=== PATIENT | female | born 1925 | race Caucasian/White ===

== ENCOUNTER 2016-11-07 00:06 | Inpatient (IN) ==
[2016-11-07] MEDS ORDERED: 0.9 % Sodium Chloride 1,000 ML IVC ONE (00:21)
[2016-11-07] MEDS: Ipratropium/Albuterol Neb 3 ML IH ONE ×2 (00:35→00:37)
--- NOTE | 2016-11-07 00:35 | Emergency Department Note ---
Disposition Clinical Impression: Congestive heart failure, Pneumonia, CKD (chronic kidney disease), Elevated troponin Disposition: Admitted As Inpatient Condition: Fair Time of Disposition: 03:40 SOB HPI - General Chief Complaint: ED Shortness of Breath/Dyspnea Stated Complaint: Hypoxia Time Seen by Provider: 11/07/16 00:21 Source: EMS Mode of arrival: EMS Limitations: altered mental status, age Nursing Notes Reviewed: Yes Vital Signs Reviewed: Yes - History of Present Illness 89-year-old female patient presents to the emergency department via EMS with reported hypoxia. Patient presents from a retirement where she has been a long-term resident. Patient has an extensive medical history. She denied any complaints upon arrival. long term report states that patient was hypoxic around 87% while on 2 L via nasal cannula. Patient has baseline altered mental status which is unchanged per nursing report. She is alert and oriented on exam. She denies any recent fever, chills, nausea, vomiting or abdominal pain. She denies any chest pain or shortness of breath. She does have a significant history of upper respiratory illnesses to include pneumonia and COPD exacerbations. Onset (ago): hour(s) Severity: moderate Consistency/Duration: constant, gradually worsening Improves with: oxygen Worsens with: nothing Known history of: COPD, recurrent pneumonia Associated symptoms: Reports: denies other symptoms Treatment prior to arrival: oxygen Cough present: No Sputum production: No Sputum Amount: None - Related Data Home oxygen amount: 2 liters Home Medications Medication Instructions Recorded Confirmed Cilostazol 50 mg PO BID 02/20/15 07/08/16 Citalopram Hydrobromide [Celexa] 20 mg PO DAILY 02/20/15 07/08/16 Ferrous Sulfate 325 mg PO BID 02/20/15 07/08/16 Folic Acid 1 mg PO DAILY 02/20/15 07/08/16 Hydroxychloroquine Sulfate 200 mg PO BID 02/20/15 07/08/16 [Plaquenil] Loperamide HCl [Diamode] 2 mg PO Q6H PRN 02/20/15 07/08/16 Simvastatin [Zocor] 10 mg PO DAILY 02/20/15 07/08/16 Calcium Carbonate [Calcium] 500 mg PO QID 07/26/15 07/08/16 Ergocalciferol (VITAMIN D2) 50,000 unit PO FR 07/26/15 07/08/16 [Vitamin D2 (50,000 UNIT)] Omeprazole [PriLOSEC] 40 mg PO DAILY 07/26/15 07/08/16 Potassium Chloride [K-Tab ER] 20 meq PO DAILY 07/26/15 07/08/16 Alendronate Sodium [Fosamax] 70 mg PO TU 04/04/16 07/08/16 Aspirin 81 mg PO DAILY 04/04/16 07/08/16 Docusate Sodium [Colace] 100 mg PO DAILY PRN 04/04/16 07/08/16 Ondansetron HCl [Zofran] 4 mg PO Q6H PRN 04/04/16 07/08/16 Propylene Glycol/Peg 400 [Systane 1 drop RIGHT EYE QID PRN 04/04/16 07/08/16 Gel Eye Drops] Sodium Chloride [Rhinaris] 1 spray NS TID PRN 04/04/16 07/08/16 Vitamin A 10,000 unit PO AD 04/04/16 07/08/16 Protein Supplement [Promod] 30 ml PO BID 06/15/16 07/08/16 Ranitidine HCl [Acid Universal Banker] 150 mg PO BID 06/15/16 07/08/16 Alprazolam [Xanax 0.25 MG Tablet] 0.25 mg PO BID PRN 07/08/16 07/08/16 Chlorpheniramine/Dextromethorp 2 cap PO Q4H PRN 07/08/16 07/08/16 [Coricidin Hbp Cough & Cold Tab] Dextran 70/Hypromellose 1 drop OP BID PRN 07/08/16 07/08/16 [Artificial Tears] Diclofenac Sodium [Voltaren] 1 appl TP QID 07/08/16 07/08/16 DiphenhydraMINE [Benadryl] 25 mg PO Q6H PRN 07/08/16 07/08/16 Gabapentin [Neurontin] 300 mg PO BID 07/08/16 07/08/16 Oxycodone HCl 10 mg PO Q4H 07/08/16 07/08/16 Previous Rx's Medication Instructions Recorded Furosemide [Lasix] 20 mg PO DAILY #4 tablet 03/18/15 OxyCODONE Immed Rel [Roxicodone 5 5 mg PO BID PRN #10 tablet 06/18/16 MG] Amlodipine [Norvasc] 5 mg PO DAILY #30 tablet 07/11/16 Allergies Allergy/AdvReac Type Severity Reaction Status Date / Time levofloxacin Allergy Mild unknown Verified 07/08/16 14:52 cephalexin [From Keflex] Allergy Unknown unknown Verified 07/08/16 14:52 clindamycin Allergy Unknown See Verified 07/08/16 14:52 Comments Erythromycin Base Allergy Unknown unknown Verified 07/08/16 14:52 hydrochlorothiazide Allergy Unknown unknown Verified 07/08/16 14:52 [From Aldoril] ibuprofen [From Motrin] Allergy Unknown See Verified 07/08/16 14:52 Comments ketorolac [From Toradol] Allergy Unknown See Verified 07/08/16 14:52 Comments methyldopa Allergy Unknown unknown Verified 07/08/16 14:52 sulfamethoxazole Allergy See Verified 07/08/16 14:52 [From Bactrim] Comments trimethoprim [From Bactrim] Allergy See Verified 07/08/16 14:52 Comments vancomycin AdvReac Unknown Red Man Verified 07/08/16 14:52 Syndrome All systems ED: reviewed and negative except as stated. Constitutional: Denies: fever, chills Cardiovascular: Denies: chest pain Respiratory: Reports: dyspnea, wheezes. Denies: cough Gastrointestinal: Denies: abdominal pain, nausea, vomiting Musculoskeletal: Denies: back pain, neck pain, joint swelling Integumentary: Denies: rash, abrasion, lesions Neurological: Denies: headache Psychiatric: Denies: anxiety, depression, suicidal thoughts, homicidal thoughts Past Medical History - Past Medical History Attestation: Yes The following information was validated with the patient. Source: patient, nursing notes reviewed Medical history: Reports: arthritis, cancer, CHF, GERD, hyperlipidemia, hypertension, liver disease, malignancy, osteoporosis, renal disease Surgical history: Reports: appendectomy, cataract, cholecystectomy, knee replacement Psychiatric history: Reports: no psych history EXTRACTIVE METALLURGIST history: Reports: no EXTRACTIVE METALLURGIST history - Social History Smoking Status: Never smoker Smokeless Tobacco Status: No Alcohol use: Reports: none Drug use: Reports: none Physical Exam - General Limitations: altered mental status General appearance: other (Patient appears somnolent, likely secondary to her "nighttime meds." Easily arousable and alert and oriented upon questioning.) - Head Head exam: atraumatic, normocephalic, normal inspection - Eye Eye exam: Present: normal appearance, PERRL - Neck Neck exam: Present: normal inspection, full ROM, trachea midline - Chest Chest inspection: Present: normal inspection, symmetric chest wall rise - Respiratory Respiratory exam: Present: wheezes (Occasional expiratory wheeze. Mild rhonchi noted throughout all lung severino.) - Cardiovascular Cardiovascular exam: Present: regular rate, normal rhythm, normal heart sounds - Abdominal Exam Abdominal exam: Present: soft, Non-Tender, normal bowel sounds - Extremities Exam Extremities exam: Present: normal inspection, full ROM. Absent: tenderness, pedal edema, calf tenderness - Expanded Lower Extremity Exam Gait: not tested/not observed - Back Exam Back exam: Present: normal inspection, full ROM. Absent: tenderness - Neurological Exam Neurological exam: Present: alert, oriented X3 - Psychiatric Psychiatric exam: Present: normal affect, normal mood - Skin Skin exam: Present: warm, dry, intact, normal color Course - Consultations Consultation #1: I discussed the case with the hospitalist, Dr. Finn, he accepts the patient for admission. Time: 03:39 Vital Signs Temperature 98.3 F 11/07/16 00:09 Pulse Rate 107 11/07/16 00:09 Respiratory Rate 16 11/07/16 00:09 Blood Pressure 132/87 11/07/16 00:09 O2 Sat by Pulse Oximetry 93 11/07/16 00:09 Temperature 98.3 F 11/07/16 00:09 Pulse Rate 101 11/07/16 03:57 Respiratory Rate 19 11/07/16 03:57 Blood Pressure 108/69 11/07/16 03:57 O2 Sat by Pulse Oximetry 97 11/07/16 03:57 Oxygen Delivery Oxygen Delivery Nasal Cannula Shortness of Breath/Dyspnea - Lab Data Result diagrams: 11/07/16 02:05 11/07/16 02:05 Lab Results 11/07/16 11/07/16 11/07/16 Range/Units 02:05 02:05 02:05 WBC 8.8 (4.3-11.1) K/mcL RBC 3.96 (3.82-4.97) M/mcL Hgb 11.3 L (11.5-15.4) g/dL Hct 34.8 L (35.3-44.9) % MCV 87.9 (83.0-100.0) fL MCH 28.5 (28.0-33.3) pg MCHC 32.5 (31.6-35.5) g/dL RDW 14.6 H (11.5-14.5) % Plt Count 154 (140-400) K/mcL MPV 10.4 (9.4-12.4) fL Immature Gran % 0.8 (0-4) % Seg Neutrophils % 96.3 % Lymphocytes % 1.8 % Monocytes % 1.0 % Eosinophils % 0.0 % Basophils % 0.1 % Neutrophils # 8.5 (1.6-8.9) K/mcL Lymphocytes # 0.2 L (0.6-4.6) K/mcL Monocytes # 0.1 (0.0-1.3) K/mcL Eosinophils # 0.0 (0.0-0.6) K/mcL Basophils # 0.0 (0.0-0.2) K/mcL Toxic Granulation Present A (Not Present) Toxic Vacuolation Present A (Not Present) Platelet Estimate Normal (Normal) Large Platelets Present A (Not Present) PT (9.4-12.1) Seconds INR APTT (26.0-36.0) Seconds Sodium 124 L (136-145) mEq/L Potassium 4.7 H (3.5-4.5) mEq/L Chloride 87 L (98-109) mEq/L Carbon Dioxide 26 (19-29) mEq/L BUN 41 H (7-20) mg/dL Creatinine 2.56 H (0.57-1.11) mg/dL Est GFR ( Amer) 21 L (> 60) Est GFR (Non-Af Amer) 18 L (> 60) BUN/Creatinine Ratio 16 (6-26) Glucose 83 (70-99) mg/dL Calculated Osmolality 267 L (280-300) Calcium 9.7 (8.6-10.8) mg/dL Troponin I 0.05 H* (0-0.03) ng/mL B-Natriuretic Peptide (0-100) pg/mL 11/07/16 11/07/16 Range/Units 02:05 02:05 WBC (4.3-11.1) K/mcL RBC (3.82-4.97) M/mcL Hgb (11.5-15.4) g/dL Hct (35.3-44.9) % MCV (83.0-100.0) fL MCH (28.0-33.3) pg MCHC (31.6-35.5) g/dL RDW (11.5-14.5) % Plt Count (140-400) K/mcL MPV (9.4-12.4) fL Immature Gran % (0-4) % Seg Neutrophils % % Lymphocytes % % Monocytes % % Eosinophils % % Basophils % % Neutrophils # (1.6-8.9) K/mcL Lymphocytes # (0.6-4.6) K/mcL Monocytes # (0.0-1.3) K/mcL Eosinophils # (0.0-0.6) K/mcL Basophils # (0.0-0.2) K/mcL Toxic Granulation (Not Present) Toxic Vacuolation (Not Present) Platelet Estimate (Normal) Large Platelets (Not Present) PT 12.8 H (9.4-12.1) Seconds INR 1.2 APTT 32.1 (26.0-36.0) Seconds Sodium (136-145) mEq/L Potassium (3.5-4.5) mEq/L Chloride (98-109) mEq/L Carbon Dioxide (19-29) mEq/L BUN (7-20) mg/dL Creatinine (0.57-1.11) mg/dL Est GFR ( Amer) (> 60) Est GFR (Non-Af Amer) (> 60) BUN/Creatinine Ratio (6-26) Glucose (70-99) mg/dL Calculated Osmolality (280-300) Calcium (8.6-10.8) mg/dL Troponin I (0-0.03) ng/mL B-Natriuretic Peptide 770 H (0-100) pg/mL Attestation Statement - Attestation Attestation: I, Keagan Juárez MD, personally evaluated this patient and discussed their management with the midlevel provicer, PAC/INFORMATICA MDM ARCHITECT. I reviewed the midlevel provider 's note and agree with the documented findings, medical decision making, and plan of care. 89-year-old female from a local retirement was referred to the emergency department for evaluation of hypoxia. Patient admits to some shortness of breath. She normally wears oxygen at night. There has been some cough with intermittent sputum production. On examination patient is a thin elderly female in no acute distress. She is alert and in no distress. Breath sounds are equal bilaterally with no definite rales or wheezes noted. Heart regular rate and rhythm. Abdomen is soft with normal bowel sounds. Chest x-ray shows low lung volumes with elevated hemidiaphragms. Perihilar atelectasis. Right upper lobe air space disease. Consider pulmonary edema, cannot exclude pneumonia. EKG shows a sinus tachycardia with a heart rate of 105, no acute ischemic changes. Labs reviewed. WBC normal with 96% segs. Hyponatremia with sodium of 124. Troponin 0.05. BNP 770. Chronic renal insufficiency. The hospitalist, Dr. Finn, was consulted and accepted admission of the patient.
[2016-11-07 02:24] LABS: Basophils % 0.1 %; Hematocrit 34.8 % (35.3-44.9); Hemoglobin 11.3 g/dL (11.5-15.4); Immature Granulocytes % 0.8 % (0-4); Lymphocytes # 0.2 K/mcL (0.6-4.6); Lymphocytes % 1.8 %; Mean Corpuscular HGB Conc 32.5 g/dL (31.6-35.5); Mean Corpuscular Hemoglobin 28.5 pg (28.0-33.3); Mean Corpuscular Volume 87.9 fL (83.0-100.0); Mean Platelet Volume 10.4 fL (9.4-12.4); Monocytes # 0.1 K/mcL (0.0-1.3); Neutrophils # 8.5 K/mcL (1.6-8.9); Platelet Count 154 K/mcL (140-400); Red Blood Count 3.96 M/mcL (3.82-4.97); Red Cell Distribution Width 14.6 % (11.5-14.5); Segmented Neutrophils % 96.3 %
[2016-11-07 02:33] LABS: INR 1.2; Prothrombin Time 12.8 Seconds (9.4-12.1)
[2016-11-07 02:36] LABS: Activated Partial Thrombo Time 32.1 Seconds (26.0-36.0)
[2016-11-07 02:37] LABS: Calcium 9.7 mg/dL (8.6-10.8); Potassium 4.7 mEq/L (3.5-4.5)
[2016-11-07 02:44] LABS: Large Platelets Present (Not Present); Platelet Estimate Normal (Normal); Toxic Granulation Present (Not Present); Toxic Vacuolation Present (Not Present)
[2016-11-07] MEDS ORDERED: Naloxone 0.4 MG/ML INJ IVP PRN (03:44)
[2016-11-07] MEDS ORDERED: Ringers Solution, Lactated 1,000 ML IVC SCH (03:45)
[2016-11-07] MEDS ORDERED: ALPRAZolam 0.5 MG TABLET PO PRN (03:48)
[2016-11-07] MEDS ORDERED: Haloperidol Lactate 5 MG/ML VIAL IVP PRN (03:50)
[2016-11-07] MEDS ORDERED: Azithromycin 250 MG TABLET PO ONE (04:06)
--- NOTE | 2016-11-07 04:32 | Internal Med History&Physical ---
<Riky Sotelo - Last Filed: 11/07/16 09:37> Date of Encounter: 11/07/16 Time of Encounter: 04:27 Assessment and Plan (1) Acute and chronic respiratory failure Current visit: Yes Status: Acute -CXR shows abnormalities consistant for pneumonia -Large allergy list that patient is unsure is classified as a true allergy -Will start abx. Consider levaquin so patient can be transitioned to oral. Monitor for anaphylaxis. Qualifiers: Respiratory failure complication: hypoxia Qualified Code(s): J96.21 - Acute and chronic respiratory failure with hypoxia (2) Pneumonia Current visit: No Status: Acute -see above -Extensive PMH. intermediate patient. Aggressive therapy. Qualifiers: Pneumonia type: due to unspecified organism Laterality: unspecified laterality Lung location: unspecified part of lung Qualified Code(s): J18.9 - Pneumonia, unspecified organism (3) Hyperkalemia Current visit: No Status: Acute -Continue to monitor. Hemolysis vs actual hyperkalemia? -Redraw K. -Consider kayexelate. (4) CKD (chronic kidney disease) stage 3, GFR 30-59 ml/min Current visit: No Status: Acute (5) Hyponatremia Current visit: No Status: Acute -Patient deydrated on physical exam-dry mucus membranes -CKD. Consider adding fluids. Patient not having AMS at this time-no need for aggressive replacement with hypertonic saline. (6) Hypertension Current visit: Yes Status: Acute -Resume home medication. Dehydrated. Consider replacing fluids. Qualifiers: Hypertension type: unspecified secondary hypertension Qualified Code(s): I15.9 - Secondary hypertension, unspecified; I15 - Secondary hypertension Internal Medicine - H&P: HPI Chief complaint: Sent from long-term for low pulse oxygen reading Admitted From: Emergency Dept Plans for Post Hospital Care: Transfer [facility] History of present illness: Ms. Cuenca is a 89 year old female, care home long-term resident with an extensive PMH, admitted for hypoxia. intermediate reports O2 stat at 87% on 2L NC, EMS called and patient presented to [place] ED. Patient is resting comfortably in bed. Per long-term, she has baseline AMS. Currently, the patient is A&O x 3. States she feels normal and at baseline. Denies any F/C/SHIPLEY/Blurry vision/confusion/acute weakness/FNLD/CP/palpitations/ SOB/abdominal pain/hematuria/urinary complaints/leg pain or swelling. She does have significant history of upper respiratory tract infections, COPD exacerbations, pneumonia. Patient unsure of when her last time taking abx and does not recall an allergy to levofloxacin. Past Med Surg Social Fam HX - Past Medical History Medical history: arthritis, cancer, CHF, GERD, hyperlipidemia, hypertension, liver disease, malignancy, osteoporosis, renal disease Psychiatric history: no psych history - Past Surgical History Surgical History: appendectomy, cataract, cholecystectomy, knee replacement - Social History Smoking Status: Never smoker Smokeless Tobacco Status: No Alcohol use: none Drug use: none - Family History Sister Adopted: No Living Status: Still Living Hx Family Cardiac Disorders: No Hx Family Respiratory Disorders: No Hx Family Cancer: No Hx Family GI Disorders: No Hx Family Endocrine Disorder: No Hx Family Neuromuscular Disorders: No Hx Family Neurologic Disorders: No Hx Family HEENT Disorders: No Hx Family Autoimmune Disorders: No Brother Family Member Ethnicity: Non- Living Status: Still Living Hx Family Cardiac Disorders: Yes (BYPASS) Hx Family Respiratory Disorders: Yes Hx Family Cancer: Yes Hx Family GI Disorders: No Hx Family Endocrine Disorder: Yes Hx Family Neuromuscular Disorders: No Hx Family Neurologic Disorders: No Hx Family HEENT Disorders: No Hx Family Autoimmune Disorders: No Internal Medicine - H&P: Meds Cilostazol 50 mg PO BID 02/20/15 [History] Citalopram Hydrobromide [Celexa] 20 mg PO DAILY 02/20/15 [History] Ferrous Sulfate 325 mg PO BID 02/20/15 [History] Folic Acid 1 mg PO DAILY 02/20/15 [History] Hydroxychloroquine Sulfate [Plaquenil] 200 mg PO BID 02/20/15 [History] Loperamide HCl [Diamode] 2 mg PO Q6H PRN 02/20/15 [History] Simvastatin [Zocor] 10 mg PO DAILY 02/20/15 [History] Furosemide [Lasix] 20 mg PO DAILY #4 tablet 03/18/15 [Rx] Calcium Carbonate [Calcium] 500 mg PO QID 07/26/15 [History] Ergocalciferol (VITAMIN D2) [Vitamin D2 (50,000 UNIT)] 50,000 unit PO FR [History] Potassium Chloride [K-Tab ER] 10 meq PO Q72H 07/26/15 [History] Alendronate Sodium [Fosamax] 70 mg PO TU 04/04/16 [History] Aspirin 81 mg PO DAILY 04/04/16 [History] Docusate Sodium [Colace] 100 mg PO DAILY PRN 04/04/16 [History] Ondansetron HCl [Zofran] 4 mg PO Q6H PRN 04/04/16 [History] Sodium Chloride [Rhinaris] 1 spray NS TID PRN 04/04/16 [History] Vitamin A 10,000 unit PO AD 04/04/16 [History] Ranitidine HCl [Acid Set Up Inspector] 150 mg PO BID 06/15/16 [History] OxyCODONE Immed Rel [Roxicodone 5 MG] 5 mg PO BID PRN #10 tablet 06/18/16 [Rx] Alprazolam [Xanax 0.25 MG Tablet] 0.25 mg PO BID PRN 07/08/16 [History] Chlorpheniramine/Dextromethorp [Coricidin Hbp Cough & Cold Tab] 2 cap PO Q4H PRN 07/08/16 [History] Dextran 70/Hypromellose [Artificial Tears] 1 drop OP BID PRN 07/08/16 [History] Diclofenac Sodium [Voltaren] 1 appl TP QID 07/08/16 [History] DiphenhydraMINE [Benadryl] 25 mg PO Q6H PRN 07/08/16 [History] Gabapentin [Neurontin] 300 mg PO BID 07/08/16 [History] Oxycodone HCl 10 mg PO Q4H 07/08/16 [History] Bisacodyl [Dulcolax] 10 mg RC DAILY PRN 11/07/16 [History] Guaifenesin [Mucinex] 600 mg PO BID 11/07/16 [History] Ipratropium/Albuterol Neb [Duoneb] 3 ml IH Q4HR PRN 11/07/16 [History] MOM Conc [Milk of Magnesia Conc] 30 ml PO DAILY PRN 11/07/16 [History] Terry/Poly/DEX Opth OINT [Maxitrol OPTH Oint] 1 appl OP DAILY PRN 11/07/16 [ History] Polyethylene Glycol 3350 [Purelax] 17 gm PO DAILY 11/07/16 [History] Sodium Chloride 1 gm PO BID 11/07/16 [History] Sulfamethoxazole/Trimeth DS [Bactrim DS] 1 tab PO BID 11/07/16 [History] Allergies levofloxacin Allergy (Mild, Verified 07/08/16 14:52) unknown cephalexin [From Keflex] Allergy (Unknown, Verified 07/08/16 14:52) unknown clindamycin Allergy (Unknown, Verified 07/08/16 14:52) See Comments Erythromycin Base Allergy (Unknown, Verified 07/08/16 14:52) unknown hydrochlorothiazide [From Aldoril] Allergy (Unknown, Verified 07/08/16 14:52) unknown ibuprofen [From Motrin] Allergy (Unknown, Verified 07/08/16 14:52) See Comments unknown ketorolac [From Toradol] Allergy (Unknown, Verified 07/08/16 14:52) See Comments unknown methyldopa Allergy (Unknown, Verified 07/08/16 14:52) unknown sulfamethoxazole [From Bactrim] Allergy (Verified 07/08/16 14:52) See Comments trimethoprim [From Bactrim] Allergy (Verified 07/08/16 14:52) See Comments vancomycin Adverse Reaction (Unknown, Verified 07/08/16 14:52) Red Man Syndrome All Systems PM: A 10-system review of systems was performed and is negative for pertinent findings except as documented above in the HPI. - EENT Eyes: no change in vision, no discharge, no pain, no photophobia - Cardiovascular Cardiovascular ROS IM: no chest pain, no diaphoresis, no dyspnea, no lightheadedness, no palpitations, no syncope - Respiratory Respiratory: no cough, no dyspnea, no wheezing, no excessive phlegm production - Gastrointestinal Gastrointestinal: no abdominal pain, no diarrhea, no hematemesis, no hematochezia, no melena, no nausea, no vomiting - Genitourinary Genitourinary: no change in urinary stream, no dysuria, no flank pain, no hematuria - Neurological Neurological ROS: as per HPI - Constitutional Vitals: Temp Pulse Resp BP Pulse Ox 98.3 F 101 19 108/69 97 11/07/16 00:09 11/07/16 03:57 11/07/16 03:57 11/07/16 03:57 11/07/16 03:57 General appearance: Present: A&O X 3, no acute distress - Head Head exam: Present: atraumatic, normocephalic - Eye Eye exam: Present: PERRL, conjuntiva pink, sclera anicteric Pupils: Present: PERRL - Respiratory Respiratory exam: Present: wheezes - Cardiovascular Cardiovascular exam: Present: RRR, systolic murmur - GI/Abdominal GI/Abdominal exam: Present: normal bowel sounds, soft, no peritoneal signs. Absent: distended, tenderness - Neurological Exam Neurological exam: Present: alert, oriented X3 - Psychiatric Psychiatric exam: Present: normal affect, normal mood - Other Additional findings: -No pitting edema -Patient diffusly red and skin is warm. Was told this is not a change in her initial presntation. Patient states this is normal. No signs of systemic infection. Possible allergy? Patient resting comfortably in bed and not working to breath Internal Med - H&P Results - Labs CBC & Chem 7: 11/07/16 02:05 11/07/16 02:05 <Artie Finn - Last Filed: 11/07/16 19:20> Date of Encounter: 11/07/16 Internal Medicine - H&P: HPI History of present illness: Ms. Cuenca is a 89 year old female All Systems PM: A 10-system review of systems was performed and is negative for pertinent findings except as documented above in the HPI. - Constitutional Vitals: Temp Pulse Resp BP Pulse Ox 98.3 F 83 16 86/54 100 11/07/16 15:24 11/07/16 15:24 11/07/16 15:24 11/07/16 15:24 11/07/16 15:24 Internal Med - H&P Results - Labs CBC & Chem 7: 11/07/16 02:05 11/07/16 11:37 Labs: BMP 11/07/16 11:37 Sodium 126 L Cardiac Enzymes 11/07/16 Range/Units 11:37 Troponin I 0.04 H* (0-0.03) ng/mL - Diagnostic Studies Chest x-ray Status: image reviewed by me - Attending Attestation I personally interviewed and examined this patient and my medical decision- making was reviewed with the Resident Physician. I agree with the documented findings, disposition and treatment plan as described.
[2016-11-07] MEDS ORDERED: 0.9 % Sodium Chloride 500 ML IVC ONE ×2 (06:07→19:21)
[2016-11-07] MEDS ORDERED: *HR* OxyCODONE Immed Rel 5 MG TABLET PO ONE (06:15)
[2016-11-07] MEDS ORDERED: *HR* OxyCODONE Immed Rel 5 MG TABLET PO PRN ×2 (06:19→06:21)
[2016-11-07] MEDS: *HR* Heparin 5,000 UNIT/ML VIAL SQ SCH ×2 (06:45→16:59)
[2016-11-07] MEDS: Folic Acid 1 MG TABLET PO SCH (08:47)
[2016-11-07] MEDS: Aspirin 81 MG TAB.CHEW PO SCH (08:47)
[2016-11-07] MEDS: Vitamin B Complex/Vit C/Vit E 1 EACH TABLET PO SCH (08:47)
[2016-11-07] MEDS: Thiamine (B-1) 100 MG TABLET PO SCH (08:48)
[2016-11-07] MEDS ORDERED: Gabapentin 300 MG CAPSULE PO SCH (09:00)
[2016-11-07] MEDS ORDERED: amLODIPine 5 MG TABLET PO SCH (09:00)
[2016-11-07] MEDS ORDERED: 0.9 % Sodium Chloride 1,000 ML IVC SCH (10:45)
[2016-11-07] MEDS ORDERED: Levofloxacin 750 MG/150 ML 750 MG/150 ML BAG IVPB SCH (12:00)
[2016-11-07] MEDS ORDERED: Piperacillin/Tazobactam 3.375 GM in D5% in Water (Mini-Bag+) 100 ML IVPB SCH (12:00)
[2016-11-07] MEDS ORDERED: Vancomycin 750 MG in D5% in Water 250 ML IVPB SCH (12:00)
--- NOTE | 2016-11-07 13:04 | Internal Med Progress Note ---
<Alison Tamayo - Last Filed: 11/07/16 13:48> Date of Encounter: 11/07/16 Time of Encounter: 10:00 - Assessment and plan (1) Pneumonia Current Visit: No Status: Acute Assessment and plan: [facility] with CC of hypoxia, with Oxygen sat in 80s. Etiology likely secondary to pneumonia. CXR showed right upper lobe opacifications. Plan: ceftriaxone, azithromycin day 2, patient has allergies listed to vanc, levaquin , and Keflex DuoNeb PRN Qualifiers: Pneumonia type: due to unspecified organism Laterality: unspecified laterality Lung location: unspecified part of lung Qualified Code(s): J18.9 - Pneumonia, unspecified organism (2) Acute and chronic respiratory failure Current Visit: Yes Status: Acute Assessment and plan: likely secondary to pneumonia. plan as above. 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 (4) Hypotension Current Visit: Yes Status: Acute Assessment and plan: patient had systolic blood pressure in 80s etiology likely secondary to dehydration Plan: IVF (80cc/hr x1L) and monitor. holding antihypertensive medications. Qualifiers: Hypotension type: unspecified hypotension type Qualified Code(s): I95.9 - Hypotension, unspecified (5) Hyponatremia Current Visit: No Status: Acute Assessment and plan: patient is seen to have chronic hyponatremia, glucose normal. Plan: IVF check lipid panel tomorrow. hold SSRI repeat BMP shows mild improvement in sodium will repeat again at 1800 (6) DVT prophylaxis Current Visit: No Status: Acute Assessment and plan: Heparin SQ - Subjective Interval history: 89 year old female evaluated at bedside. patient is alert and oriented x3, NAD. patient is a resident of [facility] [place], on 2L oxygen at night. She states she is not sure why she was sent to the hospital. she denies nausea, vomiting, diarrhea, fever, chills. she does admit to coughing up yellow/white colored sputum. she denies hemoptysis, blood in urine or stool. patient states she has pain in her knees, bilateral upper arms. she denies any other complaints today. - Constitutional Vitals: Temp Pulse Resp BP Pulse Ox 98.3 F 85 16 80/48 99 11/07/16 11:26 11/07/16 11:26 11/07/16 11:26 11/07/16 11:26 11/07/16 11:26 General appearance: Present: A&O X 3, pleasant, no acute distress - Head Head exam: Present: atraumatic, normocephalic - Neck Neck exam general surgery: Present: supple, trachea midline - Respiratory Respiratory exam: Present: CTAB - Cardiovascular Cardiovascular exam: Present: RRR - GI/Abdominal GI/Abdominal exam: Present: normal bowel sounds, soft. Absent: distended, tenderness - Extremities Exam Extremities exam: Absent: cyanotic, pedal edema Additional comments: bilateral upper extremity bruising and swelling. no pitting edema. - Neurological Exam Neurological exam: Present: alert, oriented X3, no focal deficits Internal Medicine: Result - Labs CBC & Chem 7: 11/07/16 02:05 11/07/16 11:37 Labs: BMP 11/07/16 11:37 Sodium 126 L Cardiac Enzymes 11/07/16 Range/Units 11:37 Troponin I 0.04 H* (0-0.03) ng/mL - ABG Interpretation ABG results: PT/INR, D-dimer PT 12.8 Seconds (9.4-12.1) H 11/07/16 02:05 Consult Discharge Plan - Plan Referrals: NO,PCP [Primary Care Provider] - <Puneet Flores P - Last Filed: 11/07/16 18:23> Date of Encounter: 11/07/16 - Constitutional Vitals: Temp Pulse Resp BP Pulse Ox 98.3 F 83 16 86/54 100 11/07/16 15:24 11/07/16 15:24 11/07/16 15:24 11/07/16 15:24 11/07/16 15:24 Internal Medicine: Result - Labs CBC & Chem 7: 11/07/16 02:05 11/07/16 11:37 Labs: BMP 11/07/16 11:37 Sodium 126 L Cardiac Enzymes 11/07/16 Range/Units 11:37 Troponin I 0.04 H* (0-0.03) ng/mL - ABG Interpretation ABG results: PT/INR, D-dimer PT 12.8 Seconds (9.4-12.1) H 11/07/16 02:05 - Attending Attestation I examined this patient and my medical decision-making was reviewed with the FREIGHT ELEVATOR OPERATOR/PA/Advanced Practice Nurse/Resident Physician. I agree with the documented findings, disposition and treatment plan as described except to the extent set forth below. skilled nursing resident. Background history of rheumatoid arthritis. On Plaquenil. Admitted with shortness of breath/change in color of sputum. Noted that she was on ceftriaxone and azithromycin. Started by ED On examination Her oxygen saturation is 96-98 on room air. I discontinued her oxygen supplementation. She has a audible wheeze. Assessment: Possible COPD exacerbation. Plan: IV antibiotics, IV steroids, bronchodilators. Close monitoring. Noted that patient was hypotensive and we will increase the rate of IV fluids. Patient status is full code.
[2016-11-07] MEDS ORDERED: Ipratropium/Albuterol Neb 3 ML IH PRN (13:46)
[2016-11-07 14:58] LABS: Adenovirus Not Detected (Not Detect); Bordetella Pertussis Not Detected (Not Detect); Chlamydophila pneumoniae Not Detected (Not Detect); Coronavirus 229E Not Detected (Not Detect); Coronavirus HKU1 Not Detected (Not Detect); Coronavirus NL63 Not Detected (Not Detect); Coronavirus OC43 Not Detected (Not Detect); Human Metapneumovirus Not Detected (Not Detect); Human Rhinovirus/Enterovirus Not Detected (Not Detect); Influenza A Subtype 2009 H1 Not Detected (Not Detect); Influenza A Untypeable Not Detected (Not Detect); Influenza B Not Detected (Not Detect); Mycoplasma pneumoniae Not Detected (Not Detect); Parainfluenza Virus 1 Not Detected (Not Detect); Parainfluenza Virus 2 Not Detected (Not Detect); Parainfluenza Virus 3 Not Detected (Not Detect); Parainfluenza Virus 4 Not Detected (Not Detect); Respiratory Syncytial Virus Not Detected (Not Detect)
[2016-11-07] MEDS: methylPREDNISolone 125 MG/2 ML VIAL IVP SCH ×2 (16:59→23:54)
--- NOTE | 2016-11-07 17:30 | Electrocardiograph Report ---
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
[2016-11-08 06:10] LABS: Basophils % 0.1 %; Hematocrit 30.7 % (35.3-44.9); Hemoglobin 10.1 g/dL (11.5-15.4); Immature Granulocytes % 0.2 % (0-4); Lymphocytes # 0.4 K/mcL (0.6-4.6); Lymphocytes % 3.9 %; Mean Corpuscular HGB Conc 32.9 g/dL (31.6-35.5); Mean Corpuscular Hemoglobin 28.5 pg (28.0-33.3); Mean Corpuscular Volume 86.5 fL (83.0-100.0); Mean Platelet Volume 10.8 fL (9.4-12.4); Monocytes # 0.1 K/mcL (0.0-1.3); Monocytes % 1.4 %; Neutrophils # 9.5 K/mcL (1.6-8.9); Platelet Count 145 K/mcL (140-400); Red Blood Count 3.55 M/mcL (3.82-4.97); Red Cell Distribution Width 14.7 % (11.5-14.5); Segmented Neutrophils % 94.4 %
[2016-11-08 06:28] LABS: Calcium 8.6 mg/dL (8.6-10.8); Magnesium 1.6 mg/dL (1.6-2.6); Phosphorous 3.6 mg/dL (2.3-4.7); Potassium 5.6 mEq/L (3.5-4.5)
[2016-11-08 06:34] LABS: Chol/HDL Ratio 2.2 (0-4.9)
[2016-11-08] MEDS: Azithromycin 500 MG in D5% in Water 250 ML IVPB SCH (06:40)
[2016-11-08 06:42] LABS: Platelet Estimate Normal (Normal)
[2016-11-08] MEDS: *HR* Heparin 5,000 UNIT/ML VIAL SQ SCH ×2 (06:42→18:23)
[2016-11-08] MEDS: methylPREDNISolone 125 MG/2 ML VIAL IVP SCH ×3 (06:45→18:23)
[2016-11-08] MEDS: 0.9 % Sodium Chloride 1,000 ML IVC SCH ×2 (06:49→18:20)
--- NOTE | 2016-11-08 08:59 | Internal Med Progress Note ---
<Alison Tamayo - Last Filed: 11/08/16 08:55> Date of Encounter: 11/08/16 Time of Encounter: 08:55 - Assessment and plan (1) Sepsis Current Visit: No Status: Acute Assessment and plan: [facility] from [facility] with CC of hypoxia, with Oxygen sat in 80s. Patient found to be hypotensive, hyponatremic, initially had elevated temp of 100. source of infection likely secondary to pneumonia. CXR showed right upper lobe opacifications. prelim blood culture showed no growth. Legionella and S.pneumo antigen negative Likely a component of COPD exacerbation as well. Plan: ceftriaxone, azithromycin day 3, scheduled DuoNeb IV methylprednisolone 60mg q6h continue IVF hydration. Qualifiers: Sepsis type: sepsis due to unspecified organism Qualified Code(s): A41.9 - Sepsis, unspecified organism (2) Pneumonia Current Visit: No Status: Acute Assessment and plan: Plan as above Qualifiers: Pneumonia type: due to unspecified organism Laterality: unspecified laterality Lung location: unspecified part of lung Qualified Code(s): J18.9 - Pneumonia, unspecified organism (3) Acute and chronic respiratory failure Current Visit: Yes Status: Acute Assessment and plan: likely secondary to pneumonia. plan as above. Qualifiers: Respiratory failure complication: hypoxia Qualified Code(s): J96.21 - Acute and chronic respiratory failure with hypoxia (4) Hyperkalemia Current Visit: No Status: Acute Assessment and plan: will repeat BMP at 1200 and monitor. 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 Plan: IVF hydration avoid nephrotoxins. (6) Hypotension Current Visit: Yes Status: Resolved Assessment and plan: resolved, responded to fluids. continue to monitor. Qualifiers: Hypotension type: unspecified hypotension type Qualified Code(s): I95.9 - Hypotension, unspecified (7) Hyponatremia Current Visit: No Status: Acute Assessment and plan: patient is seen to have chronic hyponatremia, glucose normal. Lipid panel normal- rule out pseudohyponatremia Plan: continue IVF, patient's blood pressure has responded well, continue to monitor. check lipid panel tomorrow. hold SSRI, opiates (8) DVT prophylaxis Current Visit: No Status: Acute Assessment and plan: Heparin SQ - Subjective Interval history: 89 year old female evaluated at bedside. patient is alert and oriented x3, NAD. Per overnight nurse notes, patient had a significant amount of coughing with water, placed NPO currently. Will need speech eval. She complains of chronic pain in her arms and legs, no further complaints today. - Constitutional Vitals: Temp Pulse Resp BP Pulse Ox 98 F 80 16 146/84 97 11/08/16 06:46 11/08/16 06:46 11/08/16 08:03 11/08/16 06:46 11/08/16 08:03 General appearance: Present: A&O X 3, pleasant, no acute distress - Head Head exam: Present: atraumatic, normocephalic - Neck Neck exam general surgery: Present: supple, trachea midline - Respiratory Respiratory exam: Present: rhonchi (audible wheezes throughout), wheezes - Cardiovascular Cardiovascular exam: Present: RRR - GI/Abdominal GI/Abdominal exam: Present: normal bowel sounds, soft. Absent: distended, tenderness - Extremities Exam Extremities exam: Absent: cyanotic, pedal edema Additional comments: bilateral ecchymosis noted on upper extremities. - Neurological Exam Neurological exam: Present: alert, oriented X3 - Psychiatric Psychiatric exam: Present: anxious Internal Medicine: Result - Labs CBC & Chem 7: 11/08/16 05:31 11/08/16 05:31 Labs: Short CBC 11/08/16 Range/Units 05:31 WBC 10.1 (4.3-11.1) K/mcL Hgb 10.1 L (11.5-15.4) g/dL Hct 30.7 L (35.3-44.9) % Plt Count 145 (140-400) K/mcL Neutrophils # 9.5 H (1.6-8.9) K/mcL BMP 11/07/16 11/08/16 11:37 05:31 Sodium 126 L 126 L Potassium 5.6 H Chloride 95 L Carbon Dioxide 22 BUN 44 H Creatinine 2.07 H Glucose 102 H Calcium 8.6 Cardiac Enzymes 11/07/16 Range/Units 11:37 Troponin I 0.04 H* (0-0.03) ng/mL - ABG Interpretation ABG results: PT/INR, D-dimer PT 12.8 Seconds (9.4-12.1) H 04/28/17 02:05 Consult Discharge Plan - Plan Referrals: NO,PCP [Primary Care Provider] - <Puneet Flores P - Last Filed: 11/08/16 16:02> Date of Encounter: 11/08/16 - Constitutional Vitals: Temp Pulse Resp BP Pulse Ox 98.1 F 83 16 115/52 96 11/08/16 15:53 11/08/16 15:53 11/08/16 15:53 11/08/16 15:53 11/08/16 15:53 Internal Medicine: Result - Labs CBC & Chem 7: 11/08/16 05:31 11/08/16 12:40 Labs: Short CBC 11/08/16 Range/Units 05:31 WBC 10.1 (4.3-11.1) K/mcL Hgb 10.1 L (11.5-15.4) g/dL Hct 30.7 L (35.3-44.9) % Plt Count 145 (140-400) K/mcL Neutrophils # 9.5 H (1.6-8.9) K/mcL BMP 11/08/16 11/08/16 05:31 12:40 Sodium 126 L 127 L Potassium 5.6 H 4.9 H Chloride 95 L 96 L Carbon Dioxide 22 23 BUN 44 H 42 H Creatinine 2.07 H 1.81 H Glucose 102 H 108 H Calcium 8.6 8.4 L - ABG Interpretation ABG results: PT/INR, D-dimer PT 12.8 Seconds (9.4-12.1) H 11/07/16 02:05 - Attending Attestation I examined this patient and my medical decision-making was reviewed with the STRAW HAT PLUNGER OPERATOR/PA/Advanced Practice Nurse/Resident Physician. I agree with the documented findings, disposition and treatment plan as described except to the extent set forth below. Patient seen and examined. During my interview with the patient and I realize that patient has audible wheeze from a distance without any stethoscope. Patient's RN confirmed the findings. Noted that patient's blood pressure is within acceptable range. Plan: We will get her scheduled/when necessary nebulizations. We will continue steroids/antibiotics. We will let her belittled more hyperglycemic than starting on any insulin as she is 89 years old and there is a risk of hypoglycemia. All above discussed with the patient and she verbalized understanding
[2016-11-08] MEDS ORDERED: Azithromycin 250 MG TABLET PO SCH (09:00)
[2016-11-08] MEDS: Aspirin 81 MG TAB.CHEW PO SCH (09:18)
[2016-11-08] MEDS: Vitamin B Complex/Vit C/Vit E 1 EACH TABLET PO SCH (09:18)
[2016-11-08] MEDS: Folic Acid 1 MG TABLET PO SCH (09:18)
[2016-11-08] MEDS: Thiamine (B-1) 100 MG TABLET PO SCH (09:19)
[2016-11-08] MEDS ORDERED: D5% in Water 1,000 ML IVC PRN (09:26)
[2016-11-08] MEDS ORDERED: *HR* Dextrose 50 % in Water (Syg) 50 ML SYRINGE IVP PRN (09:26)
[2016-11-08] MEDS ORDERED: Dextrose Gel 15 GM PO PRN ×2 (09:26)
[2016-11-08] MEDS: Ipratropium/Albuterol Neb 3 ML IH SCH ×3 (11:03→22:29)
[2016-11-08 13:14] LABS: Calcium 8.4 mg/dL (8.6-10.8); Potassium 4.9 mEq/L (3.5-4.5)
[2016-11-08] MEDS: Insulin LISPRO 300 UNITS/3 ML VIAL SQ SCH (18:17)
[2016-11-08] MEDS ORDERED: Insulin LISPRO 300 UNITS/3 ML VIAL SQ SCH (21:00)
[2016-11-08] MEDS: Acetaminophen 325 MG TABLET PO PRN (21:16)
[2016-11-09] MEDS: methylPREDNISolone 125 MG/2 ML VIAL IVP SCH ×4 (00:12→17:53)
[2016-11-09] MEDS: Ipratropium/Albuterol Neb 3 ML IH SCH ×4 (04:52→22:12)
[2016-11-09 05:13] LABS: Hematocrit 26.4 % (35.3-44.9); Hemoglobin 8.8 g/dL (11.5-15.4); Immature Granulocytes % 0.3 % (0-4); Lymphocytes # 0.4 K/mcL (0.6-4.6); Lymphocytes % 6.3 %; Mean Corpuscular HGB Conc 33.3 g/dL (31.6-35.5); Mean Corpuscular Hemoglobin 28.2 pg (28.0-33.3); Mean Corpuscular Volume 84.6 fL (83.0-100.0); Mean Platelet Volume 10.3 fL (9.4-12.4); Monocytes # 0.2 K/mcL (0.0-1.3); Monocytes % 3.2 %; Neutrophils # 5.6 K/mcL (1.6-8.9); Platelet Count 144 K/mcL (140-400); Red Blood Count 3.12 M/mcL (3.82-4.97); Red Cell Distribution Width 14.8 % (11.5-14.5); Segmented Neutrophils % 90.2 %
[2016-11-09] MEDS: *HR* Heparin 5,000 UNIT/ML VIAL SQ SCH ×2 (05:23→17:55)
[2016-11-09] MEDS: Azithromycin 500 MG in D5% in Water 250 ML IVPB SCH (05:23)
[2016-11-09 05:32] LABS: Calcium 8.2 mg/dL (8.6-10.8); Potassium 4.5 mEq/L (3.5-4.5)
[2016-11-09 05:35] LABS: Platelet Estimate Normal (Normal); Toxic Granulation Present (Not Present)
[2016-11-09] MEDS: Folic Acid 1 MG TABLET PO SCH (08:44)
[2016-11-09] MEDS: Vitamin B Complex/Vit C/Vit E 1 EACH TABLET PO SCH (08:44)
[2016-11-09] MEDS: Aspirin 81 MG TAB.CHEW PO SCH (08:44)
[2016-11-09] MEDS: Thiamine (B-1) 100 MG TABLET PO SCH (08:44)
[2016-11-09] MEDS: Insulin LISPRO 300 UNITS/3 ML VIAL SQ SCH ×3 (08:45→18:01)
--- NOTE | 2016-11-09 09:00 | Internal Med Progress Note ---
<SanchezAlison weaver - Last Filed: 11/09/16 08:55> Date of Encounter: 11/09/16 Time of Encounter: 08:55 - Assessment and plan (1) Sepsis Current Visit: No Status: Acute Assessment and plan: patient sent from [facility] with CC of hypoxia, with Oxygen sat in 80s. Patient found to be hypotensive, hyponatremic, initially had elevated temp of 100. source of infection likely secondary to pneumonia. CXR showed right upper lobe opacifications. prelim blood culture showed no growth. Legionella and S.pneumo antigen negative Likely a component of COPD exacerbation as well. Plan: ceftriaxone, azithromycin day 4, scheduled DuoNeb decrease steroids as needed. wheezing noted to be improved today. continue IVF hydration. Qualifiers: Sepsis type: sepsis due to unspecified organism Qualified Code(s): A41.9 - Sepsis, unspecified organism (2) Pneumonia Current Visit: No Status: Acute Assessment and plan: Plan as above Qualifiers: Pneumonia type: due to unspecified organism Laterality: unspecified laterality Lung location: unspecified part of lung Qualified Code(s): J18.9 - Pneumonia, unspecified organism (3) Acute and chronic respiratory failure Current Visit: Yes Status: Acute Assessment and plan: likely secondary to pneumonia. plan as above. Qualifiers: Respiratory failure complication: hypoxia Qualified Code(s): J96.21 - Acute and chronic respiratory failure with hypoxia (4) Hyperkalemia Current Visit: No Status: Resolved Assessment and plan: resolved. continue to monitor. 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 Plan: IVF hydration avoid nephrotoxins. 11/09/16 Cr improved to 1.31 continue IVF avoid nephrotoxins. (6) Hypotension Current Visit: Yes Status: Resolved Assessment and plan: resolved, responded to fluids. continue to monitor. Qualifiers: Hypotension type: unspecified hypotension type Qualified Code(s): I95.9 - Hypotension, unspecified (7) Hyponatremia Current Visit: No Status: Acute Assessment and plan: patient is seen to have chronic hyponatremia, glucose normal. Lipid panel normal- rule out pseudohyponatremia Plan: continue IVF, patient's blood pressure has responded well, continue to monitor. check lipid panel tomorrow. hold SSRI, opiates 11/09/16 continue with IVF, holding SSRI and opiates. sodium improved to 130 today. (8) DVT prophylaxis Current Visit: No Status: Acute Assessment and plan: Heparin SQ - Subjective Interval history: 89 year old female evaluated at bedside. patient was sleeping, and would answer some questions. She admits to mild nausea, she denies any vomting/diarrhea. Her wheezing has improved today. - Constitutional Vitals: Temp Pulse Resp BP Pulse Ox 98 F 98 16 114/97 96 11/09/16 07:07 11/09/16 07:07 11/09/16 07:07 11/09/16 07:07 11/09/16 07:07 General appearance: Present: A&O X 3, pleasant, no acute distress - Head Head exam: Present: atraumatic, normocephalic - Neck Neck exam general surgery: Present: supple, trachea midline - Respiratory Respiratory exam: Present: rales, wheezes Additional comments: rales present on left lower lobe - Cardiovascular Cardiovascular exam: Present: RRR - GI/Abdominal GI/Abdominal exam: Present: normal bowel sounds, soft, tenderness. Absent: distended - Extremities Exam Extremities exam: Absent: cyanotic, pedal edema Additional comments: upper extremity bilateral ecchymosis. - Neurological Exam Neurological exam: Present: alert, oriented X3 - Psychiatric Psychiatric exam: Present: anxious Internal Medicine: Result - Labs CBC & Chem 7: 11/09/16 04:42 11/09/16 04:42 Labs: Short CBC 11/09/16 Range/Units 04:42 WBC 6.2 (4.3-11.1) K/mcL Hgb 8.8 L (11.5-15.4) g/dL Hct 26.4 L (35.3-44.9) % Plt Count 144 (140-400) K/mcL Neutrophils # 5.6 (1.6-8.9) K/mcL BMP 11/08/16 11/09/16 12:40 04:42 Sodium 127 L 130 L Potassium 4.9 H 4.5 Chloride 96 L 102 Carbon Dioxide 23 21 BUN 42 H 39 H Creatinine 1.81 H 1.31 H Glucose 108 H 129 H Calcium 8.4 L 8.2 L - ABG Interpretation ABG results: PT/INR, D-dimer PT 12.8 Seconds (9.4-12.1) H 11/07/16 02:05 Consult Discharge Plan - Plan Referrals: NO,PCP [Primary Care Provider] - <Puneet Flores - Last Filed: 11/09/16 16:24> Date of Encounter: 11/09/16 - Constitutional Vitals: Temp Pulse Resp BP Pulse Ox 97.8 F 101 16 133/67 97 11/09/16 15:58 11/09/16 15:58 11/09/16 15:58 11/09/16 15:58 11/09/16 15:58 Internal Medicine: Result - Labs CBC & Chem 7: 11/09/16 04:42 11/09/16 04:42 Labs: Short CBC 11/09/16 Range/Units 04:42 WBC 6.2 (4.3-11.1) K/mcL Hgb 8.8 L (11.5-15.4) g/dL Hct 26.4 L (35.3-44.9) % Plt Count 144 (140-400) K/mcL Neutrophils # 5.6 (1.6-8.9) K/mcL BMP 11/09/16 04:42 Sodium 130 L Potassium 4.5 Chloride 102 Carbon Dioxide 21 BUN 39 H Creatinine 1.31 H Glucose 129 H Calcium 8.2 L - ABG Interpretation ABG results: PT/INR, D-dimer PT 12.8 Seconds (9.4-12.1) H 11/07/16 02:05 - Attending Attestation I examined this patient and my medical decision-making was reviewed with the MANAGER AMBULATORY/PA/Advanced Practice Nurse/Resident Physician. I agree with the documented findings, disposition and treatment plan as described except to the extent set forth below. Agency and examined. Chart reviewed. Noted that patient has a difficult IV access. Patient completed 4 days of antibiotics. Her blood pressure is stable and she does not appear to be dehydrated. Plan: Will make her antibiotics by mouth. Clinical observation. Possible home soon.
[2016-11-09] MEDS: Acetaminophen 325 MG TABLET PO PRN (21:36)
[2016-11-10] MEDS: Ipratropium/Albuterol Neb 3 ML IH SCH ×2 (03:33→10:22)
[2016-11-10 04:12] LABS: Basophils % 0.1 %; Hematocrit 29.6 % (35.3-44.9); Hemoglobin 9.7 g/dL (11.5-15.4); Immature Granulocytes % 1.7 % (0-4); Lymphocytes # 0.4 K/mcL (0.6-4.6); Lymphocytes % 5.7 %; Mean Corpuscular HGB Conc 32.8 g/dL (31.6-35.5); Mean Corpuscular Hemoglobin 28.2 pg (28.0-33.3); Mean Platelet Volume 9.7 fL (9.4-12.4); Monocytes # 0.7 K/mcL (0.0-1.3); Monocytes % 8.7 %; Neutrophils # 6.4 K/mcL (1.6-8.9); Platelet Count 157 K/mcL (140-400); Red Blood Count 3.44 M/mcL (3.82-4.97); Red Cell Distribution Width 15.2 % (11.5-14.5); Segmented Neutrophils % 83.8 %
[2016-11-10 04:32] LABS: Calcium 8.7 mg/dL (8.6-10.8); Potassium 4.3 mEq/L (3.5-4.5)
[2016-11-10] MEDS: methylPREDNISolone 125 MG/2 ML VIAL IVP SCH ×2 (05:01→05:15)
[2016-11-10] MEDS: *HR* Heparin 5,000 UNIT/ML VIAL SQ SCH (05:15)
[2016-11-10 06:49] VITALS: BP 144/77
[2016-11-10] MEDS ORDERED: Cefdinir 300 MG CAPSULE PO SCH (09:00)
[2016-11-10] MEDS: Aspirin 81 MG TAB.CHEW PO SCH (09:04)
[2016-11-10] MEDS: Acetaminophen 325 MG TABLET PO PRN (09:04)
[2016-11-10] MEDS: Folic Acid 1 MG TABLET PO SCH (09:04)
[2016-11-10] MEDS: Vitamin B Complex/Vit C/Vit E 1 EACH TABLET PO SCH (09:05)
[2016-11-10] MEDS: Thiamine (B-1) 100 MG TABLET PO SCH (09:05)
[2016-11-10] MEDS: Insulin LISPRO 300 UNITS/3 ML VIAL SQ SCH (09:05)
--- NOTE | 2016-11-10 09:43 | Discharge Summary ---
<RoniAlison - Last Filed: 11/10/16 15:30> Date of Encounter: 11/10/16 Time of Encounter: 09:30 - Discharge Diagnosis (1) Sepsis Priority: Primary Status: Acute Qualifiers: Sepsis type: sepsis due to unspecified organism Qualified Code(s): A41.9 - Sepsis, unspecified organism (2) Pneumonia Priority: Secondary Status: Acute Qualifiers: Pneumonia type: due to unspecified organism Laterality: unspecified laterality Lung location: unspecified part of lung Qualified Code(s): J18.9 - Pneumonia, unspecified organism (3) Acute and chronic respiratory failure Priority: Secondary Status: Acute Qualifiers: Respiratory failure complication: hypoxia Qualified Code(s): J96.21 - Acute and chronic respiratory failure with hypoxia (4) Acute kidney injury superimposed on chronic kidney disease Priority: Secondary Status: Acute (5) Hyponatremia Priority: Secondary Status: Acute (6) DVT prophylaxis Priority: Secondary Status: Acute - Discharge Medications Prescriptions: Amlodipine [Norvasc] 5 mg PO DAILY #30 tablet Azithromycin [Zithromax Tri-Last] 500 mg PO DAILY #3 tablet Cefdinir [Omnicef] 300 mg PO BID #5 capsule OxyCODONE Immed Rel [Roxicodone 5 MG] 5 mg PO BID PRN #12 tablet PRN Reason: Pain PredniSONE See Taper PO TAPER #30 tablet Home Medications: Cilostazol 50 mg PO BID 02/20/15 [History] Citalopram Hydrobromide [Celexa] 20 mg PO DAILY 02/20/15 [History] Ferrous Sulfate 325 mg PO BID 02/20/15 [History] Folic Acid 1 mg PO DAILY 02/20/15 [History] Hydroxychloroquine Sulfate [Plaquenil] 200 mg PO BID 02/20/15 [History] Loperamide HCl [Diamode] 2 mg PO Q6H PRN 02/20/15 [History] Simvastatin [Zocor] 10 mg PO DAILY 02/20/15 [History] Furosemide [Lasix] 20 mg PO DAILY #4 tablet 03/18/15 [Rx] Calcium Carbonate [Calcium] 500 mg PO QID 07/26/15 [History] Ergocalciferol (VITAMIN D2) [Vitamin D2 (50,000 UNIT)] 50,000 unit PO FR [History] Potassium Chloride [K-Tab ER] 10 meq PO Q72H 07/26/15 [History] Alendronate Sodium [Fosamax] 70 mg PO TU 04/04/16 [History] Aspirin 81 mg PO DAILY 04/04/16 [History] Docusate Sodium [Colace] 100 mg PO DAILY PRN 04/04/16 [History] Ondansetron HCl [Zofran] 4 mg PO Q6H PRN 04/04/16 [History] Sodium Chloride [Rhinaris] 1 spray NS TID PRN 04/04/16 [History] Vitamin A 10,000 unit PO AD 04/04/16 [History] Ranitidine HCl [Acid Cotton Washer] 150 mg PO BID 06/15/16 [History] Chlorpheniramine/Dextromethorp [Coricidin Hbp Cough & Cold Tab] 2 cap PO Q4H PRN 07/08/16 [History] Dextran 70/Hypromellose [Artificial Tears] 1 drop OP BID PRN 07/08/16 [History] Diclofenac Sodium [Voltaren] 1 appl TP QID 07/08/16 [History] Gabapentin [Neurontin] 300 mg PO BID 07/08/16 [History] Bisacodyl [Dulcolax] 10 mg RC DAILY PRN 11/07/16 [History] Guaifenesin [Mucinex] 600 mg PO BID 11/07/16 [History] Ipratropium/Albuterol Neb [Duoneb] 3 ml IH Q4HR PRN 11/07/16 [History] MOM Conc [MILK OF MAGNESIA conc] 30 ml PO DAILY PRN 11/07/16 [History] Terry/Poly/DEX Opth OINT [Maxitrol OPTH Oint] 1 appl OP DAILY PRN 11/07/16 [ History] Polyethylene Glycol 3350 [Purelax] 17 gm PO DAILY 11/07/16 [History] Sodium Chloride 1 gm PO BID 11/07/16 [History] Amlodipine [Norvasc] 5 mg PO DAILY #30 tablet 11/10/16 [Rx] Azithromycin [Zithromax Tri-Last] 500 mg PO DAILY #3 tablet 11/10/16 [Rx] Cefdinir [Omnicef] 300 mg PO BID #5 capsule 11/10/16 [Rx] OxyCODONE Immed Rel [Roxicodone 5 MG] 5 mg PO BID PRN #12 tablet 11/10/16 [Rx] PredniSONE See Taper PO TAPER #30 tablet 11/10/16 [Rx] Allergies/Adverse Reactions: Allergies levofloxacin Allergy (Mild, Verified 07/08/16 14:52) unknown cephalexin [From Keflex] Allergy (Unknown, Verified 07/08/16 14:52) unknown clindamycin Allergy (Unknown, Verified 07/08/16 14:52) See Comments Erythromycin Base Allergy (Unknown, Verified 07/08/16 14:52) unknown hydrochlorothiazide [From Aldoril] Allergy (Unknown, Verified 07/08/16 14:52) unknown ibuprofen [From Motrin] Allergy (Unknown, Verified 07/08/16 14:52) See Comments unknown ketorolac [From Toradol] Allergy (Unknown, Verified 07/08/16 14:52) See Comments unknown methyldopa Allergy (Unknown, Verified 07/08/16 14:52) unknown sulfamethoxazole [From Bactrim] Allergy (Verified 07/08/16 14:52) See Comments trimethoprim [From Bactrim] Allergy (Verified 07/08/16 14:52) See Comments vancomycin Adverse Reaction (Unknown, Verified 07/08/16 14:52) Red Man Syndrome Date of admission: 11/07/16 06:03 Primary care physician: PCP NO Consults: 11/07/16 07:01 Consult to Electrician Third [CONS] Routine Reason for SW Consult: patient is from [facility] 11/08/16 00:19 Consult to Speech Therapy [CONS] Stat Comment: Evaluate, develop and implement POC Reason for Consult: Patient aspirating on intake of fluids. Call Completed: No - Patient Status Disposition: Transfer SNF Condition: Fair Functional capacity at discharge: bed bound Overall status at discharge: patient is progressing back to baseline - Discharge Instructions Instructions: Oxycodone/Acetaminophen (By mouth), Azithromycin (By mouth), Amlodipine (By mouth), Heart Failure (DC), Chronic Kidney Disease (DC), Pneumonia (DC) Follow Up With: NO,PCP [Primary Care Provider] - Additional Instructions: Follow up with PCP within one week. Take all meds as prescribed. Finish course of antibiotics prescribed. return to emergency department if symptoms return. - Diet and Activity Activity: increase activity as tolerated Diet: other (mechanically altered regular diet. ) Hospital course: Ms. Schrake is a 89 year old female with PMHx of arthritis, cholangiocarcinoma, CHF, GERD, HLD, HTN, liver disease, osteoporosis, CKD. Patient is a resident of [facility]. She was admitted to [facility] on 11/07/16 for hypoxia. Per documentation, intermediate reports the patient's oxygen sat was 87% on 2L NC. She was treated for sepsis with source of infection from pneumonia, likely secondary to COPD exacerbation. CXR showed perihilar atalectasis, suspecteed right upper lobe airspace disease. blood cultures showed no growth. Legionella and S.pneumo antigen were negative. patient was started on azithromycin, ceftriaxone, IV steroids, and scheduled duonebs. Patient also had hyponatremia, likely secondary to dehydration. She was started on IVF, and home meds that have potential to cause hyponatremia were held. She initially had PIOTR on CKD, which was improved with fluids. Patient's sodium improved after fluid administration as well. On day 3 of her hospital stay, patient's antibiotics were switched from IV to oral. Upon admission, patient had audible wheezes that were significantly improved with steroid admission. Patient had urinary retention, and received straight catheterization. She was stable throughout the course of her hospital stay, and remained stable until discharge. Plan: Follow up with PCP within 1 week of discharge. Finish antibiotics. take all meds as prescribed. return to emergency department if symptoms return. - Time Spent with Patient Total time spent providing and/or coordinating discharge services: - Constitutional Vitals: Temp Pulse Resp BP Pulse Ox 97.7 F 93 16 144/77 94 11/10/16 06:46 11/10/16 06:46 11/10/16 06:46 11/10/16 06:46 11/10/16 06:46 General appearance: Present: A&O X 3, pleasant, no acute distress - Head Head exam: Present: atraumatic, normocephalic - Neck Neck exam general surgery: Present: supple, trachea midline - Respiratory Respiratory exam: Present: wheezes - Cardiovascular Cardiovascular exam: Present: RRR - GI/Abdominal GI/Abdominal exam: Present: normal bowel sounds, soft. Absent: tenderness - Extremities Exam Extremities exam: Absent: cyanotic, pedal edema Additional comments: bilateral upper extremity bruising noted. - Neurological Exam Neurological exam: Present: alert, oriented X3 - Psychiatric Psychiatric exam: Present: normal affect, normal mood <Puneet Flores P - Last Filed: 11/10/16 18:38> Date of Encounter: 11/10/16 Date of admission: 11/07/16 06:03 Primary care physician: PCP NO Consults: 11/07/16 07:01 Consult to Electrician Third [CONS] Routine Reason for SW Consult: patient is from [facility] 11/08/16 00:19 Consult to Speech Therapy [CONS] Stat Comment: Evaluate, develop and implement POC Reason for Consult: Patient aspirating on intake of fluids. Call Completed: No Hospital course: Ms. Cuenca is a 89 year old female - Time Spent with Patient Total time spent providing and/or coordinating discharge services: - Constitutional Vitals: Temp Pulse Resp BP Pulse Ox 97.7 F 93 16 144/77 94 11/10/16 06:46 11/10/16 06:46 11/10/16 06:46 11/10/16 06:46 11/10/16 06:46 - Attending Attestation I examined this patient and my medical decision-making was reviewed with the INTERNET AND [employer] BUSINESS PROJECT MANAGER/PA/Advanced Practice Nurse/Resident Physician. I agree with the documented findings, disposition and treatment plan as described except to the extent set forth below.
--- NOTE | 2016-11-10 10:11 | Physician Discharge Referral ---
<Alison Tamayo - Last Filed: 11/10/16 10:09> [facility] Referral Info Transfer To: [facility] Provider in Charge after Transfer: PCP Institutional Level of Care: Skilled - Diagnosis (1) Sepsis Priority: Primary Status: Acute (2) Pneumonia Priority: Secondary Status: Acute (3) Acute and chronic respiratory failure Priority: Secondary Status: Acute (4) Acute kidney injury superimposed on chronic kidney disease Priority: Secondary Status: Acute (5) Hyponatremia Priority: Secondary Status: Acute (6) DVT prophylaxis Priority: Secondary Status: Acute (7) Hyperkalemia Priority: Secondary Status: Resolved (8) Hypotension Priority: Secondary Status: Resolved - Transfer Medications Prescriptions: Amlodipine [Norvasc] 5 mg PO DAILY #30 tablet Azithromycin [Zithromax Tri-Last] 500 mg PO DAILY #3 tablet Cefdinir [Omnicef] 300 mg PO BID #5 capsule OxyCODONE Immed Rel [Roxicodone 5 MG] 5 mg PO BID PRN #12 tablet PRN Reason: Pain PredniSONE See Taper PO TAPER #30 tablet Home Medications: Cilostazol 50 mg PO BID 02/20/15 [History] Citalopram Hydrobromide [Celexa] 20 mg PO DAILY 02/20/15 [History] Ferrous Sulfate 325 mg PO BID 02/20/15 [History] Folic Acid 1 mg PO DAILY 02/20/15 [History] Hydroxychloroquine Sulfate [Plaquenil] 200 mg PO BID 02/20/15 [History] Loperamide HCl [Diamode] 2 mg PO Q6H PRN 02/20/15 [History] Simvastatin [Zocor] 10 mg PO DAILY 02/20/15 [History] Furosemide [Lasix] 20 mg PO DAILY #4 tablet 03/18/15 [Rx] Calcium Carbonate [Calcium] 500 mg PO QID 07/26/15 [History] Ergocalciferol (VITAMIN D2) [Vitamin D2 (50,000 UNIT)] 50,000 unit PO FR [History] Potassium Chloride [K-Tab ER] 10 meq PO Q72H 07/26/15 [History] Alendronate Sodium [Fosamax] 70 mg PO TU 04/04/16 [History] Aspirin 81 mg PO DAILY 04/04/16 [History] Docusate Sodium [Colace] 100 mg PO DAILY PRN 04/04/16 [History] Ondansetron HCl [Zofran] 4 mg PO Q6H PRN 04/04/16 [History] Sodium Chloride [Rhinaris] 1 spray NS TID PRN 04/04/16 [History] Vitamin A 10,000 unit PO AD 04/04/16 [History] Ranitidine HCl [Acid Policy Writer] 150 mg PO BID 06/15/16 [History] Chlorpheniramine/Dextromethorp [Coricidin Hbp Cough & Cold Tab] 2 cap PO Q4H PRN 07/08/16 [History] Dextran 70/Hypromellose [Artificial Tears] 1 drop OP BID PRN 07/08/16 [History] Diclofenac Sodium [Voltaren] 1 appl TP QID 07/08/16 [History] Gabapentin [Neurontin] 300 mg PO BID 07/08/16 [History] Bisacodyl [Dulcolax] 10 mg RC DAILY PRN 11/07/16 [History] Guaifenesin [Mucinex] 600 mg PO BID 11/07/16 [History] Ipratropium/Albuterol Neb [Duoneb] 3 ml IH Q4HR PRN 11/07/16 [History] MOM Conc [MILK OF MAGNESIA conc] 30 ml PO DAILY PRN 11/07/16 [History] Terry/Poly/DEX Opth OINT [Maxitrol OPTH Oint] 1 appl OP DAILY PRN 11/07/16 [ History] Polyethylene Glycol 3350 [Purelax] 17 gm PO DAILY 11/07/16 [History] Sodium Chloride 1 gm PO BID 11/07/16 [History] Amlodipine [Norvasc] 5 mg PO DAILY #30 tablet 11/10/16 [Rx] Azithromycin [Zithromax Tri-Last] 500 mg PO DAILY #3 tablet 11/10/16 [Rx] Cefdinir [Omnicef] 300 mg PO BID #5 capsule 11/10/16 [Rx] OxyCODONE Immed Rel [Roxicodone 5 MG] 5 mg PO BID PRN #12 tablet 11/10/16 [Rx] PredniSONE See Taper PO TAPER #30 tablet 11/10/16 [Rx] Allergies/Adverse Reactions: Allergies levofloxacin Allergy (Mild, Verified 07/08/16 14:52) unknown cephalexin [From Keflex] Allergy (Unknown, Verified 07/08/16 14:52) unknown clindamycin Allergy (Unknown, Verified 07/08/16 14:52) See Comments Erythromycin Base Allergy (Unknown, Verified 07/08/16 14:52) unknown hydrochlorothiazide [From Aldoril] Allergy (Unknown, Verified 07/08/16 14:52) unknown ibuprofen [From Motrin] Allergy (Unknown, Verified 07/08/16 14:52) See Comments unknown ketorolac [From Toradol] Allergy (Unknown, Verified 07/08/16 14:52) See Comments unknown methyldopa Allergy (Unknown, Verified 07/08/16 14:52) unknown sulfamethoxazole [From Bactrim] Allergy (Verified 07/08/16 14:52) See Comments trimethoprim [From Bactrim] Allergy (Verified 07/08/16 14:52) See Comments vancomycin Adverse Reaction (Unknown, Verified 07/08/16 14:52) Red Man Syndrome - Respiratory Orders Oxygen / L per min (2L) Smoking Cessation: Smoking cessation has been advised. For more information, call the [place] Quit Line at 1-291-REHJ-NOW. - Advance Directives Code Status: Full Code - Mobility Orders Bedrest (intermittent straight catheterization for urinary retention.) - Rehabiliation Orders Rehab Potential: Fair - Diet Orders Mechanical Soft CERTIFICATION: I certify that the transfer of the above named patient to an Extended Care Facility is necessary for the continuing treatment of the diagnosis listed. The above information is true and accurate reflection of patient's current condition. Confidential - Redisclosure prohibited without a patient's written consent. <Puneet Flores - Last Filed: 11/10/16 18:38> - Respiratory Orders Smoking Cessation: Smoking cessation has been advised. For more information, call the [place] Quit Line at 2-859-BCUF-NOW. CERTIFICATION: I certify that the transfer of the above named patient to an Extended Care Facility is necessary for the continuing treatment of the diagnosis listed. The above information is true and accurate reflection of patient's current condition. Confidential - Redisclosure prohibited without a patient's written consent.
== END 2016-11-10 13:28 | DRG 871 ==
LOC: 2NENU 00:06 → EMEROO 00:06 → 2NENU 05:34
PROVIDERS: ADMIT Internal Medicine; ATTEND Internal Medicine

== ENCOUNTER 2017-01-05 16:32 | Inpatient (IN) ==
[2017-01-05] MEDS ORDERED: Furosemide 40 MG/4 ML VIAL IVP ONE (16:42)
--- NOTE | 2017-01-05 16:43 | Emergency Department Note ---
Disposition Clinical Impression: Hyponatremia, Acute exacerbation of chronic obstructive airways disease CHF exacerbation Qualifiers: Congestive heart failure type: unspecified congestive heart failure type Qualified Code(s): I50.9 - Heart failure, unspecified UTI (urinary tract infection) Qualifiers: Urinary tract infection type: acute cystitis Hematuria presence: without hematuria Qualified Code(s): N30.00 - Acute cystitis without hematuria Disposition: Admitted As Inpatient Condition: Serious Referrals: NO,PCP [Primary Care Provider] - Forms: ED Satisfaction Letter Time of Disposition: 18:38 SOB HPI - General Chief Complaint: ED Shortness of Breath/Dyspnea Stated Complaint: GISSEL/decreased output Time Seen by Provider: 01/05/17 16:35 Source: patient, EMS Mode of arrival: EMS Limitations: no limitations Nursing Notes Reviewed: Yes Vital Signs Reviewed: Yes - History of Present Illness 89-year-old female with history of CHF and COPD, presents with shortness of breath for last day or so. Patient arrived via EMS, they stated that she was almost unresponsive when they first got there, she does provide an okay history and denies any chest pain abdominal pain but describes that she has generalized weakness all over, generalized pain all over. At baseline, the patient does have oxygen as needed at night, but she is not oxygen dependent normally. She denies weight gain, fevers chills, nausea vomiting diarrhea constipation. She does have leg swelling that her baseline. Pt Subjective Complaint: shortness of breath Onset (ago): day(s) Severity: moderate Consistency/Duration: intermittent Improves with: oxygen Worsens with: lying flat, exertion Known history of: COPD, congestive heart failure Associated symptoms: Reports: wheezing. Denies: chest pain, pain with inspiration, fever Cough present: Yes Cough Description: Voluntary Cough Frequency: Intermittent Sputum production: Yes Sputum Amount: Scant Sputum Color: Clear - Related Data Home Medications Medication Instructions Recorded Confirmed Cilostazol 50 mg PO BID 02/20/15 11/07/16 Citalopram Hydrobromide [Celexa] 20 mg PO DAILY 02/20/15 11/07/16 Ferrous Sulfate 325 mg PO BID 02/20/15 11/07/16 Folic Acid 1 mg PO DAILY 02/20/15 11/07/16 Hydroxychloroquine Sulfate 200 mg PO BID 02/20/15 11/07/16 [Plaquenil] Loperamide HCl [Diamode] 2 mg PO Q6H PRN 02/20/15 11/07/16 Simvastatin [Zocor] 10 mg PO DAILY 02/20/15 11/07/16 Calcium Carbonate [Calcium] 500 mg PO QID 07/26/15 11/07/16 Ergocalciferol (VITAMIN D2) 50,000 unit PO FR 07/26/15 11/07/16 [Vitamin D2 (50,000 UNIT)] Potassium Chloride [K-Tab ER] 10 meq PO Q72H 07/26/15 11/07/16 Alendronate Sodium [Fosamax] 70 mg PO TU 04/04/16 11/07/16 Aspirin 81 mg PO DAILY 04/04/16 11/07/16 Docusate Sodium [Colace] 100 mg PO DAILY PRN 04/04/16 11/07/16 Ondansetron HCl [Zofran] 4 mg PO Q6H PRN 04/04/16 11/07/16 Sodium Chloride [Rhinaris] 1 spray NS TID PRN 04/04/16 11/07/16 Vitamin A 10,000 unit PO AD 04/04/16 11/07/16 Ranitidine HCl [Acid Lining Setter] 150 mg PO BID 06/15/16 11/07/16 Chlorpheniramine/Dextromethorp 2 cap PO Q4H PRN 07/08/16 11/07/16 [Coricidin Hbp Cough & Cold Tab] Dextran 70/Hypromellose 1 drop OP BID PRN 07/08/16 11/07/16 [Artificial Tears] Diclofenac Sodium [Voltaren] 1 appl TP QID 07/08/16 11/07/16 Gabapentin [Neurontin] 300 mg PO BID 07/08/16 11/07/16 Bisacodyl [Dulcolax] 10 mg RC DAILY PRN 11/07/16 11/07/16 Guaifenesin [Mucinex] 600 mg PO BID 11/07/16 11/07/16 Ipratropium/Albuterol Neb [Duoneb] 3 ml IH Q4HR PRN 11/07/16 11/07/16 MOM Conc [MILK OF MAGNESIA conc] 30 ml PO DAILY PRN 11/07/16 11/07/16 Terry/Poly/DEX Opth OINT [Maxitrol 1 appl OP DAILY PRN 11/07/16 11/07/16 OPTH Oint] Polyethylene Glycol 3350 [Purelax] 17 gm PO DAILY 11/07/16 11/07/16 Sodium Chloride 1 gm PO BID 11/07/16 11/07/16 Previous Rx's Medication Instructions Recorded Furosemide [Lasix] 20 mg PO DAILY #4 tablet 03/18/15 Azithromycin [Zithromax Tri-Last] 500 mg PO DAILY #3 tablet 11/10/16 Cefdinir [Omnicef] 300 mg PO BID #5 capsule 11/10/16 OxyCODONE Immed Rel [Roxicodone 5 5 mg PO BID PRN #12 tablet 11/10/16 MG] amLODIPine [Norvasc] 5 mg PO DAILY #30 tablet 11/10/16 predniSONE [PredniSONE] See Taper PO TAPER #30 tablet 11/10/16 Allergies Allergy/AdvReac Type Severity Reaction Status Date / Time levofloxacin Allergy Mild unknown Verified 07/08/16 14:52 cephalexin [From Keflex] Allergy Unknown unknown Verified 07/08/16 14:52 clindamycin Allergy Unknown See Verified 07/08/16 14:52 Comments Erythromycin Base Allergy Unknown unknown Verified 07/08/16 14:52 hydrochlorothiazide Allergy Unknown unknown Verified 07/08/16 14:52 [From Aldoril] ibuprofen [From Motrin] Allergy Unknown See Verified 07/08/16 14:52 Comments ketorolac [From Toradol] Allergy Unknown See Verified 07/08/16 14:52 Comments methyldopa Allergy Unknown unknown Verified 07/08/16 14:52 sulfamethoxazole Allergy See Verified 07/08/16 14:52 [From Bactrim] Comments trimethoprim [From Bactrim] Allergy See Verified 07/08/16 14:52 Comments vancomycin AdvReac Unknown [place] Verified 07/08/16 14:52 Syndrome All systems ED: reviewed and negative except as stated. Constitutional: Denies: fever, chills, weakness Cardiovascular: Reports: as per HPI, dyspnea on exertion, orthopnea, edema. Denies: chest pain Respiratory: Reports: as per HPI, cough, dyspnea, wheezes Gastrointestinal: Denies: abdominal pain, nausea, melena, hematochezia Genitourinary: Denies: urgency, dysuria Musculoskeletal: Denies: back pain, neck pain Integumentary: Denies: rash Neurological: Denies: headache Past Medical History - Past Medical History Attestation: Yes The following information was validated with the patient. Source: nursing notes reviewed Medical history: Reports: arthritis, cancer, CHF, GERD, hyperlipidemia, hypertension, liver disease, malignancy, osteoporosis, renal disease Surgical history: Reports: appendectomy, cataract, cholecystectomy, knee replacement Psychiatric history: Reports: no psych history SLIP COVER SEAMSTRESS history: Reports: no SLIP COVER SEAMSTRESS history - Social History Smoking Status: Never smoker Smokeless Tobacco Status: No Alcohol use: Reports: none Drug use: Reports: none Physical Exam Constitutional: Laterally female satting 92% on 2 L nasal cannula, appears mildly uncomfortable, and tachypneic HEENT: NCAT, sclera anicteric, PERRLA bilaterally, mucus membranes dry Neck: normal inspection, neck is supple, trachea midline Resp: normal chest inspection, bibasilar rales,a nd scattered wheezes CV: tachycardic, no m/g/r +2 pitting edema bilaterally GI: normal inspection, Soft, NTND, BS present Back: normal inspection, no tenderness to palpation Neuro: A&O3, no gross motor or sensory deficits bilaterally MSK: normal inspection Skin: No rashes, skin warm, dry, intact - General Limitations: age General appearance: alert Course Course Narrative: 89-year-old female that appears to have a CHF exacerbation, give 40 IV Lasix, [place] placement given that she was anuric at [place], she appears to have basilar Rales, increased oxygen dependence we will check baseline labs, chest x- ray diuresis, also given DuoNeb treatment, we will reassess - Reevaluation(s) Reevaluation #1: On of hyponatremia, with sodium of 118, on review she has had sodiums as low as 121, however concerning given that she is weak and short of breath, we will give normal saline at this time, admit patient for CHF exacerbation and hyponatremia Time: 18:37 Vital Signs Temperature 99.2 F 01/05/17 16:34 Pulse Rate 96 01/05/17 16:34 Respiratory Rate 16 01/05/17 16:34 Blood Pressure 131/69 01/05/17 16:34 O2 Sat by Pulse Oximetry 92 01/05/17 16:34 Temperature 99.2 F 01/05/17 16:34 Pulse Rate 87 01/05/17 17:34 Respiratory Rate 22 01/05/17 17:34 Blood Pressure 118/64 01/05/17 17:34 O2 Sat by Pulse Oximetry 98 01/05/17 17:34 Oxygen Delivery Oxygen Delivery Room Air Shortness of Breath/Dyspnea - MDM Narrative Medical decision making narrative: [place] nurse practitioner accepted patient for admission for CHF exacerbation and hyponatremia, patient currently stable also we treated her with IV antibiotics for possible UTI given her urine - Differential Diagnosis Likely: acute exacerbation of chronic obstructive airways disease, congestive heart failure - Medical Records Medical records reviewed: Yes I reviewed the patient's medical records. - Lab Data Lab results reviewed: Yes I reviewed the patient's lab results. Result diagrams: 01/05/17 17:05 01/05/17 17:05 Lab Results 01/05/17 01/05/17 01/05/17 Range/Units 16:57 17:05 17:05 WBC 11.0 (4.3-11.1) K/mcL RBC 4.02 (3.82-4.97) M/mcL Hgb 11.5 (11.5-15.4) g/dL Hct 34.4 L (35.3-44.9) % MCV 85.6 (83.0-100.0) fL MCH 28.6 (28.0-33.3) pg MCHC 33.4 (31.6-35.5) g/dL RDW 13.8 (11.5-14.5) % Plt Count 180 (140-400) K/mcL MPV 9.9 (9.4-12.4) fL Immature Gran % 0.5 (0-4) % Seg Neutrophils % 84.3 % Lymphocytes % 11.3 % Monocytes % 3.7 % Eosinophils % 0.0 % Basophils % 0.2 % Neutrophils # 9.3 H (1.6-8.9) K/mcL Lymphocytes # 1.3 (0.6-4.6) K/mcL Monocytes # 0.4 (0.0-1.3) K/mcL Eosinophils # 0.0 (0.0-0.6) K/mcL Basophils # 0.0 (0.0-0.2) K/mcL PT 10.9 (9.4-12.1) Seconds INR 1.0 APTT 23.8 L (26.0-36.0) Seconds Sodium (136-145) mEq/L Potassium (3.5-4.5) mEq/L Chloride (98-109) mEq/L Carbon Dioxide (19-29) mEq/L BUN (7-20) mg/dL Creatinine (0.57-1.11) mg/dL Est GFR ( Amer) (> 60) Est GFR (Non-Af Amer) (> 60) BUN/Creatinine Ratio (6-26) Glucose (70-99) mg/dL Calculated Osmolality (280-300) Lactic Acid (0.5-2.2) mmol/L Calcium (8.6-10.8) mg/dL Total Bilirubin (0.2-1.2) mg/dL Direct Bilirubin (0.0-0.5) mg/dL Indirect Bilirubin (0.0-1.2) mg/dL AST (5-34) Units/L ALT (0-55) Units/L Alkaline Phosphatase (38-126) Units/L Troponin I (0-0.03) ng/mL B-Natriuretic Peptide (0-100) pg/mL Serum Total Protein (6.0-8.3) g/dL Albumin (3.5-5.0) g/dL Globulin (2.4-3.5) g/dL Albumin/Globulin Ratio (1.1-2.2) Lipase (8-78) Units/L Urine Color Yellow (Yellow) Urine Clarity Clear (Clear) Urine pH 7.0 (5.0-8.0) pH Units Ur Specific [place] 1.007 L (1.010-1.025) Urine Protein Negative (Neg-Trace) mg/dL Urine Glucose (UA) Normal (Normal) mg/dL Urine Ketones Negative (Negative) mg/dL Urine Blood Moderate H (Negative) Urine Nitrite Negative (Negative) Urine Bilirubin Negative (Negative) Urine Urobilinogen Normal (Normal) mg/dL Ur Leukocyte Esterase Moderate H (Negative) Urine Microscopic RBC 0-3 (0-3) per hpf Urine Microscopic WBC 5-15 H (0-3) per hpf Ur Squamous Epith Cells Few (None-Few) per lpf Urine Bacteria Test Not Performed Hyaline Casts Test Not Performed Ur Culture Indicated? YES A (NO) 01/05/17 01/05/17 01/05/17 Range/Units 17:05 17:05 17:05 WBC (4.3-11.1) K/mcL RBC (3.82-4.97) M/mcL Hgb (11.5-15.4) g/dL Hct (35.3-44.9) % MCV (83.0-100.0) fL MCH (28.0-33.3) pg MCHC (31.6-35.5) g/dL RDW (11.5-14.5) % Plt Count (140-400) K/mcL MPV (9.4-12.4) fL Immature Gran % (0-4) % Seg Neutrophils % % Lymphocytes % % Monocytes % % Eosinophils % % Basophils % % Neutrophils # (1.6-8.9) K/mcL Lymphocytes # (0.6-4.6) K/mcL Monocytes # (0.0-1.3) K/mcL Eosinophils # (0.0-0.6) K/mcL Basophils # (0.0-0.2) K/mcL PT (9.4-12.1) Seconds INR APTT (26.0-36.0) Seconds Sodium (136-145) mEq/L Potassium (3.5-4.5) mEq/L Chloride (98-109) mEq/L Carbon Dioxide (19-29) mEq/L BUN (7-20) mg/dL Creatinine (0.57-1.11) mg/dL Est GFR ( Amer) (> 60) Est GFR (Non-Af Amer) (> 60) BUN/Creatinine Ratio (6-26) Glucose (70-99) mg/dL Calculated Osmolality (280-300) Lactic Acid 0.9 (0.5-2.2) mmol/L Calcium (8.6-10.8) mg/dL Total Bilirubin (0.2-1.2) mg/dL Direct Bilirubin (0.0-0.5) mg/dL Indirect Bilirubin (0.0-1.2) mg/dL AST (5-34) Units/L ALT (0-55) Units/L Alkaline Phosphatase (38-126) Units/L Troponin I 0.02 (0-0.03) ng/mL B-Natriuretic Peptide 191 H (0-100) pg/mL Serum Total Protein (6.0-8.3) g/dL Albumin (3.5-5.0) g/dL Globulin (2.4-3.5) g/dL Albumin/Globulin Ratio (1.1-2.2) Lipase (8-78) Units/L Urine Color (Yellow) Urine Clarity (Clear) Urine pH (5.0-8.0) pH Units Ur Specific [place] (1.010-1.025) Urine Protein (Neg-Trace) mg/dL Urine Glucose (UA) (Normal) mg/dL Urine Ketones (Negative) mg/dL Urine Blood (Negative) Urine Nitrite (Negative) Urine Bilirubin (Negative) Urine Urobilinogen (Normal) mg/dL Ur Leukocyte Esterase (Negative) Urine Microscopic RBC (0-3) per hpf Urine Microscopic WBC (0-3) per hpf Ur Squamous Epith Cells (None-Few) per lpf Urine Bacteria Hyaline Casts Ur Culture Indicated? (NO) 01/05/17 Range/Units 17:05 WBC (4.3-11.1) K/mcL RBC (3.82-4.97) M/mcL Hgb (11.5-15.4) g/dL Hct (35.3-44.9) % MCV (83.0-100.0) fL MCH (28.0-33.3) pg MCHC (31.6-35.5) g/dL RDW (11.5-14.5) % Plt Count (140-400) K/mcL MPV (9.4-12.4) fL Immature Gran % (0-4) % Seg Neutrophils % % Lymphocytes % % Monocytes % % Eosinophils % % Basophils % % Neutrophils # (1.6-8.9) K/mcL Lymphocytes # (0.6-4.6) K/mcL Monocytes # (0.0-1.3) K/mcL Eosinophils # (0.0-0.6) K/mcL Basophils # (0.0-0.2) K/mcL PT (9.4-12.1) Seconds INR APTT (26.0-36.0) Seconds Sodium 118 L* (136-145) mEq/L Potassium 5.1 H (3.5-4.5) mEq/L Chloride 85 L (98-109) mEq/L Carbon Dioxide 25 (19-29) mEq/L BUN 21 H (7-20) mg/dL Creatinine 1.21 H (0.57-1.11) mg/dL Est GFR ( Amer) 51 L (> 60) Est GFR (Non-Af Amer) 42 L (> 60) BUN/Creatinine Ratio 17 (6-26) Glucose 87 (70-99) mg/dL Calculated Osmolality 248 L (280-300) Lactic Acid (0.5-2.2) mmol/L Calcium 9.8 (8.6-10.8) mg/dL Total Bilirubin 1.2 (0.2-1.2) mg/dL Direct Bilirubin 0.4 (0.0-0.5) mg/dL Indirect Bilirubin 0.8 (0.0-1.2) mg/dL AST 39 H (5-34) Units/L ALT 53 (0-55) Units/L Alkaline Phosphatase 467 H (38-126) Units/L Troponin I (0-0.03) ng/mL B-Natriuretic Peptide (0-100) pg/mL Serum Total Protein 6.3 (6.0-8.3) g/dL Albumin 3.1 L (3.5-5.0) g/dL Globulin 3.2 (2.4-3.5) g/dL Albumin/Globulin Ratio 1.0 L (1.1-2.2) Lipase 15 (8-78) Units/L Urine Color (Yellow) Urine Clarity (Clear) Urine pH (5.0-8.0) pH Units Ur Specific [place] (1.010-1.025) Urine Protein (Neg-Trace) mg/dL Urine Glucose (UA) (Normal) mg/dL Urine Ketones (Negative) mg/dL Urine Blood (Negative) Urine Nitrite (Negative) Urine Bilirubin (Negative) Urine Urobilinogen (Normal) mg/dL Ur Leukocyte Esterase (Negative) Urine Microscopic RBC (0-3) per hpf Urine Microscopic WBC (0-3) per hpf Ur Squamous Epith Cells (None-Few) per lpf Urine Bacteria Hyaline Casts Ur Culture Indicated? (NO) - Radiology Data Radiology results reviewed: Yes I reviewed the patient's radiology results. Chest X-Ray 01/05/17 16:36 IMPRESSION: Minimal bibasilar atelectasis. D/ / Albino Gonzalez MD / Albino Gonzalez MD Interpreting Provider: Albino Gonzalez MD - EKG Data EKG attestation: Yes I reviewed and interpreted this EKG. EKG shows normal: Reports: sinus rhythm (92 bpm VA 167 QRS [address] segment elevations or depressions, unchanged from previous EKG in October) Rhythm: Reports: NSR [place]/QRS: Reports: normal Interpretation: Reports: unchanged when compared to prior tracing (date) Attestation Statement - Attestation Attestation: I examined this patient and my medical decision-making was reviewed with the DRIVER EDUC[employer] RO[employer] INSTRUCTOR/PA/Advanced Practice Nurse/Resident Physician. I agree with the documented findings, disposition and treatment plan as described except to the extent set forth below. Patient emergency department with weakness. States she has pain in her shoulders elbows and just does not feel well. Nauseated. On examination she is awake alert and oriented. Lungs with an X between wheezing. Abdomen soft. She is afebrile. Plan. Patient hyponatremic at 119. Likely the cause of her weakness. Also mild UTI. Sent for culture normal start treating. Patient is admitted to medicine. 30 minutes of critical care exclusive of separately billable procedures.
[2017-01-05 17:22] LABS: Basophils % 0.2 %; Hematocrit 34.4 % (35.3-44.9); Hemoglobin 11.5 g/dL (11.5-15.4); Immature Granulocytes % 0.5 % (0-4); Lymphocytes # 1.3 K/mcL (0.6-4.6); Lymphocytes % 11.3 %; Mean Corpuscular HGB Conc 33.4 g/dL (31.6-35.5); Mean Corpuscular Hemoglobin 28.6 pg (28.0-33.3); Mean Corpuscular Volume 85.6 fL (83.0-100.0); Mean Platelet Volume 9.9 fL (9.4-12.4); Monocytes # 0.4 K/mcL (0.0-1.3); Monocytes % 3.7 %; Neutrophils # 9.3 K/mcL (1.6-8.9); Platelet Count 180 K/mcL (140-400); Prothrombin Time 10.9 Seconds (9.4-12.1); Red Blood Count 4.02 M/mcL (3.82-4.97); Red Cell Distribution Width 13.8 % (11.5-14.5); Segmented Neutrophils % 84.3 %
[2017-01-05] MEDS ORDERED: Ipratropium/Albuterol Neb 3 ML IH ONE (17:23)
[2017-01-05 17:24] LABS: Activated Partial Thrombo Time 23.8 Seconds (26.0-36.0)
[2017-01-05 17:50] LABS: Albumin 3.1 g/dL (3.5-5.0); Bilirubin,Direct 0.4 mg/dL (0.0-0.5); Bilirubin,Indirect 0.8 mg/dL (0.0-1.2); Bilirubin,Total 1.2 mg/dL (0.2-1.2); Calcium 9.8 mg/dL (8.6-10.8); Globulin 3.2 g/dL (2.4-3.5); Potassium 5.1 mEq/L (3.5-4.5); Total Protein 6.3 g/dL (6.0-8.3)
[2017-01-05 18:03] LABS: Bilirubin,Urine Negative (Negative); Blood,Urine Moderate (Negative); Clarity,Urine Clear (Clear); Color,Urine Yellow (Yellow); Glucose,Urine (UA) Normal (Normal); Ketones,Urine Negative (Negative); Leukocyte Esterase,Urine Moderate (Negative); Nitrite,Urine Negative (Negative); Protein,Urine Negative (Neg-Trace); Specific Gravity,Urine 1.007 (1.010-1.025); Urobilinogen,Urine Normal (Normal)
[2017-01-05] MEDS ORDERED: 0.9 % Sodium Chloride 1,000 ML IVC SCH (18:15)
[2017-01-05 18:16] LABS: Squamous Epithelial Cell,Urine Few per lpf (None-Few)
[2017-01-05 18:17] LABS: RBC,Urine 0-3 per hpf (0-3)
[2017-01-05] MEDS ORDERED: Piperacillin/Tazobactam 3.375 GM in D5% in Water (Mini-Bag+) 100 ML IVPB ONE (18:26)
[2017-01-05] MEDS ORDERED: Naloxone 0.4 MG/ML INJ IVP PRN (20:29)
--- NOTE | 2017-01-05 21:37 | Internal Med History&Physical ---
Date of Encounter: 01/05/17 Time of Encounter: 20:30 Assessment and Plan (1) Hyponatremia Current visit: Yes Status: Acute 1 on presentation patient's sodium is 118 estimated osmolarity is 248 hypoosmolar hyponatremia secondary to fluid overload. We will continue with IV Lasix 40 twice a day 2 1500 mL fluid restriction 3 strict intake output/daily weights 4 we will check BNP at 2300 patient may require 3% sodium chloride will need to transfer to [facility] emergency department that if necessary 5 monitor neuro status- 6 seizure precautions 7 check urine sodium (2) Acute on chronic kidney failure Current visit: Yes Status: Acute Patient's creatinine is 1.21 this is not the highest it has been appears that she has had on again off again bouts of AK I. apparently she had been anuric at the [facility] prior to arrival It appears she does have a history of a renal mass, we will obtain renal ultrasound 2. 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 Hold oral potassium supplements (5) UTI (urinary tract infection) Current visit: Yes Status: Acute 1 patient does have positive urinalysis for UTI. He will cover with Zosyn renally dosed- awaiting culture results and adjust to sensitivity Qualifiers: Urinary tract infection type: acute cystitis Hematuria presence: with hematuria Qualified Code(s): N30.01 - Acute cystitis with hematuria (6) DVT prophylaxis Current visit: Yes Status: Acute Heparin subcutaneous Internal Medicine - H&P: HPI Chief complaint: Shortness of breath Admitted From: Emergency Dept Plans for Post Hospital Care: Transfer Long Term Facility History of present illness: Ms. Cuenca is a 89 year old female past medical history of CK D hypertension anemia rheumatoid arthritis GERD coronary artery disease hyperlipidemia frequent PIOTR cholangiocarcinoma, renal mass. Patient is a poor historian due to altered mental state information obtained from medical records. According to ER records patient has been experiencing shortness of breath/anuria the last day or so she resides at an [facility]. Upon arrival of the EMS patient was almost unresponsive. She was transported to the ER for evaluation. According to their arrival she was arousable to verbal stimuli. Lab work did reveal a KI creatinine 1.21 BUN was 21-type O nitrate anemia sodium of 118 hyperkalemia potassium 5.1 was 0.02 BNP was 191 lactate was 0.9. Urine was obtained which did reveal moderate amount of blood as well as moderate leukoesterase. Chest x- ray showed minimal bibasilar atelectasis. Patient was given 40 of IV Lasix [place] was placed with immediate urinary turn. She has been admitted for further workup evaluation. Upon review of patient's records it appears patient was diagnosed with cholangiocarcinoma which she has not received any radiation chemotherapy or surgical treatment. Also in June 2016 she has been diagnosed with a renal mass in her right kidney. According to records It appears that she has declined any intervention. It appears that she has had frequent bouts of AK I since this time. Presently patient is arousable to verbal stimuli she does follow simple commands is oriented 3. There does not appear to be any signs of seizure activity. Heart sounds are regular S1 and S2 with no rubs clicks, murmurs noted lungs sounds are clear think crackles in the bases bilaterally no exertion me edema abdomen soft nontender. It appears she does have a DNR CCA order signed today. Concerned about patient's hyponatremia. We will continue with Lasix and fluid restriction we will recheck BNP at 11:00 this evening may need to initiate 3% sodium. I reviewed this case with who agrees with plan. Past Med Surg Social Fam HX - Past Medical History Medical history: arthritis, cancer, CHF, GERD, hyperlipidemia, hypertension, liver disease, malignancy, osteoporosis, renal disease Psychiatric history: no psych history - Past Surgical History Surgical History: appendectomy, cataract, cholecystectomy, knee replacement - Social History Smoking Status: Never smoker Smokeless Tobacco Status: No Alcohol use: none Drug use: none - Family History Sister Adopted: No Living Status: Still Living Hx Family Cardiac Disorders: No Hx Family Respiratory Disorders: No Hx Family Cancer: No Hx Family GI Disorders: No Hx Family Endocrine Disorder: No Hx Family Neuromuscular Disorders: No Hx Family Neurologic Disorders: No Hx Family HEENT Disorders: No Hx Family Autoimmune Disorders: No Brother Family Member Ethnicity: Non- Living Status: Still Living Hx Family Cardiac Disorders: Yes (BYPASS) Hx Family Respiratory Disorders: Yes Hx Family Cancer: Yes Hx Family GI Disorders: No Hx Family Endocrine Disorder: Yes Hx Family Neuromuscular Disorders: No Hx Family Neurologic Disorders: No Hx Family HEENT Disorders: No Hx Family Autoimmune Disorders: No Internal Medicine - H&P: Meds Cilostazol 50 mg PO BID 02/20/15 [History] Citalopram Hydrobromide [Celexa] 20 mg PO DAILY 02/20/15 [History] Ferrous Sulfate 325 mg PO BID 02/20/15 [History] Folic Acid 1 mg PO DAILY 02/20/15 [History] Hydroxychloroquine Sulfate [Plaquenil] 200 mg PO BID 02/20/15 [History] Loperamide HCl [Diamode] 2 mg PO Q6H PRN 02/20/15 [History] Furosemide [Lasix] 20 mg PO DAILY #4 tablet 03/18/15 [Rx] Calcium Carbonate [Calcium] 500 mg PO QID 07/26/15 [History] Ergocalciferol (VITAMIN D2) [Vitamin D2 (50,000 UNIT)] 50,000 unit PO FR [History] Potassium Chloride [K-Tab ER] 10 meq PO Q72H 07/26/15 [History] Alendronate Sodium [Fosamax] 70 mg PO TU 04/04/16 [History] Aspirin 81 mg PO DAILY 04/04/16 [History] Docusate Sodium [Colace] 100 mg PO DAILY PRN 04/04/16 [History] Ondansetron HCl [Zofran] 4 mg PO Q6H PRN 04/04/16 [History] Ranitidine HCl [Acid [employer]] 150 mg PO BID 06/15/16 [History] Chlorpheniramine/Dextromethorp [Coricidin Hbp Cough & Cold Tab] 2 cap PO Q4H PRN 07/08/16 [History] Dextran 70/Hypromellose [Artificial Tears] 1 drop OP BID PRN 07/08/16 [History] Diclofenac Sodium [Voltaren] 1 appl TP QID 07/08/16 [History] Gabapentin [Neurontin] 300 mg PO BID 07/08/16 [History] Ipratropium/Albuterol Neb [Duoneb] 3 ml IH Q4HR PRN 11/07/16 [History] Polyethylene Glycol 3350 [Purelax] 17 gm PO DAILY PRN 11/07/16 [History] OxyCODONE Immed Rel [Roxicodone 5 MG] 5 mg PO BID PRN #12 tablet 11/10/16 [Rx] amLODIPine [Norvasc] 5 mg PO DAILY #30 tablet 11/10/16 [Rx] ALPRAZolam [Xanax 0.25 MG Tablet] 0.25 mg PO BID PRN 01/05/17 [History] Acetaminophen/Chlorpheniramine [Coricidin HBP Cold & Flu Tab] 2 each PO Q4HR PRN 01/05/17 [History] Ciprofloxacin OPTH Soln [Ciloxan OPTH Soln] 1 drop RIGHT EYE HS 01/05/17 [ History] Mv-Mn/FA/Vit K/Lycop/Lut/Coq10 [Daily Multivitamin Capsule] 1 each PO DAILY [History] Oxycodone HCl 10 mg PO Q4H PRN 01/05/17 [History] Sodium Chloride [[place]] 1 spray NS TID PRN 01/05/17 [History] Allergies levofloxacin Allergy (Mild, Verified 01/05/17 19:37) unknown cephalexin [From Keflex] Allergy (Unknown, Verified 01/05/17 19:37) unknown clindamycin Allergy (Unknown, Verified 01/05/17 19:37) See Comments Erythromycin Base Allergy (Unknown, Verified 01/05/17 19:37) unknown hydrochlorothiazide [From Aldoril] Allergy (Unknown, Verified 01/05/17 19:37) unknown ibuprofen [From Motrin] Allergy (Unknown, Verified 01/05/17 19:37) See Comments unknown ketorolac [From Toradol] Allergy (Unknown, Verified 01/05/17 19:37) See Comments unknown methyldopa Allergy (Unknown, Verified 01/05/17 19:37) unknown sulfamethoxazole [From Bactrim] Allergy (Verified 01/05/17 19:37) See Comments trimethoprim [From Bactrim] Allergy (Verified 01/05/17 19:37) See Comments vancomycin Adverse Reaction (Unknown, Verified 01/05/17 19:37) Red Man Syndrome ROS unobtainable: due to mental status All Systems PM: A 10-system review of systems was performed and is negative for pertinent findings except as documented above in the HPI. - Constitutional Vitals: Temp Pulse Resp BP Pulse Ox 98.4 F 96 17 101/55 93 01/05/17 20:42 01/05/17 20:42 01/05/17 20:42 01/05/17 20:42 01/05/17 20:42 General appearance: Present: A&O X 3 - Head Head exam: Present: atraumatic, normocephalic - Eye Eye exam: Present: PERRL, conjuntiva pink, sclera anicteric Pupils: Present: PERRL - Neck Neck exam general surgery: Present: supple, trachea midline. Absent: lymphadenopathy - Respiratory Respiratory exam: Present: rales. Absent: accessory muscle use, rhonchi, wheezes Additional comments: N basis bilaterally - Cardiovascular Cardiovascular exam: Present: RRR, +S1, +S2. Absent: diastolic murmur, gallop, rubs, systolic murmur - GI/Abdominal GI/Abdominal exam: Present: normal bowel sounds, soft, no peritoneal signs. Absent: distended, tenderness - Extremities Exam Extremities exam: Present: warm, radial pulses palpable and symetrical. Absent : calf tenderness, cyanotic, pedal edema - Neurological Exam Neurological exam: Present: CN II-XII intact, oriented X3, no focal deficits. Absent: pronater drift, facial droop, speech deficit - Skin Skin exam: Present: dry, intact Internal Med - H&P Results - Labs CBC & Chem 7: 01/05/17 17:05 01/05/17 17:05 - EKG Data EKG shows normal: sinus rhythm - EKG Data Prior EKG available for review: yes When compared to previous EKG: there is no significant change - Diagnostic Studies Chest x-ray Additional comments: Chest X-Ray 01/05/17 16:36 IMPRESSION: Minimal bibasilar atelectasis. D/ / Albino Gonzalez MD / Albino Gonzalez MD Interpreting Provider: Albino Gonzalez MD
[2017-01-05] MEDS ORDERED: Ipratropium/Albuterol Neb 3 ML IH PRN (22:40)
[2017-01-05 23:42] LABS: Calcium 9.3 mg/dL (8.6-10.8); Potassium 4.9 mEq/L (3.5-4.5)
[2017-01-06] MEDS: Acetaminophen 325 MG TABLET PO PRN (01:00)
[2017-01-06] MEDS: Piperacillin/Tazobactam 3.375 GM in D5% in Water (Mini-Bag+) 100 ML IVPB SCH ×3 (01:02→17:30)
[2017-01-06] MEDS: *HR* Heparin 5,000 UNIT/ML VIAL SQ SCH ×2 (05:22→17:30)
[2017-01-06 08:32] LABS: Calcium 8.7 mg/dL (8.6-10.8); Magnesium 1.3 mg/dL (1.6-2.6); Potassium 4.7 mEq/L (3.5-4.5)
[2017-01-06 08:58] LABS: Basophils % 0.2 %; Hematocrit 27.6 % (35.3-44.9); Hemoglobin 9.6 g/dL (11.5-15.4); Immature Granulocytes % 0.5 % (0-4); Lymphocytes # 1.6 K/mcL (0.6-4.6); Lymphocytes % 12.7 %; Mean Corpuscular HGB Conc 34.8 g/dL (31.6-35.5); Mean Corpuscular Hemoglobin 29.2 pg (28.0-33.3); Mean Corpuscular Volume 83.9 fL (83.0-100.0); Mean Platelet Volume 10.4 fL (9.4-12.4); Monocytes % 6.1 %; Neutrophils # 9.8 K/mcL (1.6-8.9); Platelet Count 138 K/mcL (140-400); Red Blood Count 3.29 M/mcL (3.82-4.97); Red Cell Distribution Width 13.9 % (11.5-14.5); Segmented Neutrophils % 80.5 %
[2017-01-06 08:59] LABS: Monocytes # 0.7 K/mcL (0.0-1.3)
[2017-01-06] MEDS: Folic Acid 1 MG TABLET PO SCH (10:27)
[2017-01-06] MEDS: Aspirin 81 MG TAB.CHEW PO SCH (10:27)
[2017-01-06] MEDS: Furosemide 40 MG/4 ML VIAL IVP SCH ×2 (10:27→22:08)
--- NOTE | 2017-01-06 11:44 | Nephrology Consult Note ---
Date of Encounter: 01/06/17 Time of Encounter: 11:40 Assessment and Plan (1) Hyponatremia Current Visit: Yes Status: Acute Etiology of her hyponatremia is not completely clear. It seems to be responding to saline and Lasix. Agree with fluid restriction and continuing with Lasix and saline. Monitor sodium levels closely. She should not rise more than about 8 mEq per liter per day. Hold NSAID. We will check TSH along with urine and serum osmolality. (2) Acute kidney injury superimposed on chronic kidney disease Current Visit: No Status: Acute Patient has chronic kidney disease dating back to June of last year. She seemed to have a variable EGFR without a clear baseline. She may be improving. Avoid nephrotoxic agents. Adjust medications for renal function. (3) UTI (urinary tract infection) Current Visit: No Status: Acute We will defer to primary care team. Patient is on antibiotics now. Await culture data. Qualifiers: Urinary tract infection type: acute cystitis Hematuria presence: without hematuria Qualified Code(s): N30.00 - Acute cystitis without hematuria (4) Cholangiocarcinoma Current Visit: No Status: Chronic Per primary team. Palliative team has been consulted. (5) Hypomagnesemia Current Visit: Yes Status: Acute Replacement ordered. History of Present Illness - Reason for Consult Consult date: 01/06/17 hyponatremia - Chief Complaint hyponatremia - History of Present Illness Ms. Cuenca is an 89 yo woman with a history of cancer as well as chronic kidney disease who presents for the evaluation of shortness of breath. The patient is a poor historian and most of the information is obtained from review of the electronic record. Patient was found to have hyponatremia and a consult was placed to nephrology for help with her hyponatremia. Patient's only complaint was of mild dyspnea. She denies chest pain, nausea, vomiting, or diarrhea. She reports having a slightly decreased appetite, but reports that she drinks a lot. Past Med Surg Social Fam HX - Past Medical History Medical history: arthritis, cancer, CHF, GERD, hyperlipidemia, hypertension, liver disease, malignancy, osteoporosis, renal disease Psychiatric history: no psych history - Past Surgical History Surgical History: appendectomy, cataract, cholecystectomy, knee replacement - Social History Smoking Status: Never smoker Smokeless Tobacco Status: No Alcohol use: none Drug use: none - Family History Sister Adopted: No Living Status: Still Living Hx Family Cardiac Disorders: No Hx Family Respiratory Disorders: No Hx Family Cancer: No Hx Family GI Disorders: No Hx Family Endocrine Disorder: No Hx Family Neuromuscular Disorders: No Hx Family Neurologic Disorders: No Hx Family HEENT Disorders: No Hx Family Autoimmune Disorders: No Brother Family Member Ethnicity: Non- Living Status: Still Living Hx Family Cardiac Disorders: Yes (BYPASS) Hx Family Respiratory Disorders: Yes Hx Family Cancer: Yes Hx Family GI Disorders: No Hx Family Endocrine Disorder: Yes Hx Family Neuromuscular Disorders: No Hx Family Neurologic Disorders: No Hx Family HEENT Disorders: No Hx Family Autoimmune Disorders: No Medications and Allergies Cilostazol 50 mg PO BID 02/20/15 [History] Citalopram Hydrobromide [Celexa] 20 mg PO DAILY 02/20/15 [History] Ferrous Sulfate 325 mg PO BID 02/20/15 [History] Folic Acid 1 mg PO DAILY 02/20/15 [History] Hydroxychloroquine Sulfate [Plaquenil] 200 mg PO BID 02/20/15 [History] Loperamide HCl [Diamode] 2 mg PO Q6H PRN 02/20/15 [History] Furosemide [Lasix] 20 mg PO DAILY #4 tablet 03/18/15 [Rx] Calcium Carbonate [Calcium] 500 mg PO QID 07/26/15 [History] Ergocalciferol (VITAMIN D2) [Vitamin D2 (50,000 UNIT)] 50,000 unit PO FR [History] Potassium Chloride [K-Tab ER] 10 meq PO Q72H 07/26/15 [History] Alendronate Sodium [Fosamax] 70 mg PO TU 04/04/16 [History] Aspirin 81 mg PO DAILY 04/04/16 [History] Docusate Sodium [Colace] 100 mg PO DAILY PRN 04/04/16 [History] Ondansetron HCl [Zofran] 4 mg PO Q6H PRN 04/04/16 [History] Ranitidine HCl [Acid [employer]] 150 mg PO BID 06/15/16 [History] Chlorpheniramine/Dextromethorp [Coricidin Hbp Cough & Cold Tab] 2 cap PO Q4H PRN 07/08/16 [History] Dextran 70/Hypromellose [Artificial Tears] 1 drop OP BID PRN 07/08/16 [History] Diclofenac Sodium [Voltaren] 1 appl TP QID 07/08/16 [History] Gabapentin [Neurontin] 300 mg PO BID 07/08/16 [History] Ipratropium/Albuterol Neb [Duoneb] 3 ml IH Q4HR PRN 11/07/16 [History] Polyethylene Glycol 3350 [Purelax] 17 gm PO DAILY PRN 11/07/16 [History] OxyCODONE Immed Rel [Roxicodone 5 MG] 5 mg PO BID PRN #12 tablet 11/10/16 [Rx] amLODIPine [Norvasc] 5 mg PO DAILY #30 tablet 11/10/16 [Rx] ALPRAZolam [Xanax 0.25 MG Tablet] 0.25 mg PO BID PRN 01/05/17 [History] Acetaminophen/Chlorpheniramine [Coricidin HBP Cold & Flu Tab] 2 each PO Q4HR PRN 01/05/17 [History] Ciprofloxacin OPTH Soln [Ciloxan OPTH Soln] 1 drop RIGHT EYE HS 01/05/17 [ History] Mv-Mn/FA/Vit K/Lycop/Lut/Coq10 [Daily Multivitamin Capsule] 1 each PO DAILY [History] Oxycodone HCl 10 mg PO Q4H PRN 01/05/17 [History] Sodium Chloride [[place]] 1 spray NS TID PRN 01/05/17 [History] Allergies levofloxacin Allergy (Mild, Verified 01/05/17 19:37) unknown cephalexin [From Keflex] Allergy (Unknown, Verified 01/05/17 19:37) unknown clindamycin Allergy (Unknown, Verified 01/05/17 19:37) See Comments Erythromycin Base Allergy (Unknown, Verified 01/05/17 19:37) unknown hydrochlorothiazide [From Aldoril] Allergy (Unknown, Verified 01/05/17 19:37) unknown ibuprofen [From Motrin] Allergy (Unknown, Verified 01/05/17 19:37) See Comments unknown ketorolac [From Toradol] Allergy (Unknown, Verified 01/05/17 19:37) See Comments unknown methyldopa Allergy (Unknown, Verified 01/05/17 19:37) unknown sulfamethoxazole [From Bactrim] Allergy (Verified 01/05/17 19:37) See Comments trimethoprim [From Bactrim] Allergy (Verified 01/05/17 19:37) See Comments vancomycin Adverse Reaction (Unknown, Verified 01/05/17 19:37) Red Man Syndrome Review of Systems All Systems: reviewed and no additional remarkable complaints except as stated ( As documented in the history of present illness) Exam - Vital Signs Vital signs: Initial Vital Signs Temp Pulse Resp BP Pulse Ox 99.2 F 96 16 131/69 92 01/05/17 16:34 01/05/17 16:34 01/05/17 16:34 01/05/17 16:34 01/05/17 16:34 Vital Signs - Last 8 Hours Temp Pulse Resp BP Pulse Ox 01/06/17 11:33 98.9 F 78 15 107/67 99 01/06/17 07:36 98.1 F 71 14 122/55 100 01/06/17 03:47 98.4 F 70 16 104/59 100 Intake and Output 01/05/17 01/06/17 01/06/17 23:59 07:59 15:59 Intake Total 100 / 100 Output Total 650 / 650 650 / 650 650 / 650 Balance -650 / -650 -550 / -550 -650 / -650 Intake: IV Fluids 100 / 100 Zosyn 3.375 GM In 100 / 100 Dextrose 5% (Minibag+) 100 ML 100 ML @ 25 mls/hr IVPB Q12HR [facility] Rx#: [id number] Output: Catheter 650 / 650 650 / 650 650 / 650 Other: Weight 58.241 kg 64.773 kg Patient Weight 01/06/17 23:59 Weight 64.773 kg Results - Lab Results 01/06/17 07:48 01/06/17 13:49 Most recent lab results Calcium 8.7 mg/dL (8.6-10.8) 01/06/17 07:48 Magnesium 1.3 mg/dL (1.6-2.6) L 01/06/17 07:48 Urine Sodium 28.0 mEq/L 01/05/17 21:43 Consult Discharge Plan - Plan Referrals: NO,PCP [Primary Care Provider] -
--- NOTE | 2017-01-06 11:54 | Palliative - Consult Note ---
Date of Encounter: 01/06/17 Time of Encounter: 11:52 - Assessment and Plan (1) Bilateral knee pain Current Visit: Yes Status: Acute Assessment and plan: Bilateral knee pain related to arthritis. Ms. Cuenca typically takes oxycodone as needed for symtpoms management. Ms. Cuenca is non-ambulatory at baseline. 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 (3) UTI (urinary tract infection) Current Visit: Yes Status: Acute Assessment and plan: Management per hospitalist. Currently on Zosyn. Qualifiers: Urinary tract infection type: acute cystitis Hematuria presence: with hematuria Qualified Code(s): N30.01 - Acute cystitis with hematuria (4) Hyponatremia Current Visit: No Status: Acute Assessment and plan: Nephrology following (5) Goals of care, counseling/discussion Current Visit: Yes Status: Acute Assessment and plan: Discussed goals of care with patient's sister/POA (Faye Cuenca). Reviewed medical history and current plan of care. Her sister had just initiated a [facility] referral 2 days prior to admission. Sister supports DNR status and wishes no heroic measures in the event of a cardiac arrest. Plan for additional family meeting tomorrow around noon. When ready to discharge, will continue [facility] hospice referral per sister/POA request. Palliative-CN HPI - Data of Consult Patient: known to practice within the last 3 years Consult date: 01/06/17 Requesting Physician: Nereyda Win CNP Primary Care Provider: PCP NO - Consult Narrative Palliative Care/Comfort Measures: Palliative care Reason for consult: Goals of care History of present illness: Ms. 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 Ms. Cuenca is a poor historian, therefore information was gathered from the medical record and her sister/POA (Faye Cuenca). She presented to [facility] ED with complaints of shortness of breath, poor urine output, and altered mental status. EMS services were contacted and she was transported to the ED. She was unable to void, so a catheter was placed. Ms. Cuenca's urine culture is positive for gram positive cocci. She also had hyponatremia and nephrology was consulted. Ms. Cuenca was admitted to the hospital for further work-up and treatment. Palliative care was consulted to assist with goals of care. Ms. uCenca is non- ambulatory and has lived at [facility] ([facility]) for over a year. She has difficulty eating as she is edentulous, and often orders soft foods to eat at mealtime. Ms. Cuenca does report occasional coughing episodes when eating meals. She denies nausea/vomiting/diarrhea/constipation. Her sister/ POA states Ms. Cuenca has had "memory problems" recently. Ms. Cuenca's sister /POPEYE has approached the [facility] about a hospice evaluation prior to her hospitalization. CC: Nereyda Win, RADHA Past Med Surg Social Fam HX - Past Medical History Source: patient, old records reviewed Medical history: arthritis, cancer, CHF, GERD, hyperlipidemia, hypertension, liver disease, malignancy, osteoporosis, renal disease Psychiatric history: no psych history - Past Surgical History Surgical History: appendectomy, cataract, cholecystectomy, knee replacement - Social History Smoking Status: Never smoker Smokeless Tobacco Status: No Alcohol use: none Drug use: none - Family History Sister Adopted: No Living Status: Still Living Hx Family Cardiac Disorders: No Hx Family Respiratory Disorders: No Hx Family Cancer: No Hx Family GI Disorders: No Hx Family Endocrine Disorder: No Hx Family Neuromuscular Disorders: No Hx Family Neurologic Disorders: No Hx Family HEENT Disorders: No Hx Family Autoimmune Disorders: No Brother Family Member Ethnicity: Non- Living Status: Still Living Hx Family Cardiac Disorders: Yes (BYPASS) Hx Family Respiratory Disorders: Yes Hx Family Cancer: Yes Hx Family GI Disorders: No Hx Family Endocrine Disorder: Yes Hx Family Neuromuscular Disorders: No Hx Family Neurologic Disorders: No Hx Family HEENT Disorders: No Hx Family Autoimmune Disorders: No Medications and Allergies Cilostazol 50 mg PO BID 02/20/15 [History] Citalopram Hydrobromide [Celexa] 20 mg PO DAILY 02/20/15 [History] Ferrous Sulfate 325 mg PO BID 02/20/15 [History] Folic Acid 1 mg PO DAILY 02/20/15 [History] Hydroxychloroquine Sulfate [Plaquenil] 200 mg PO BID 02/20/15 [History] Loperamide HCl [Diamode] 2 mg PO Q6H PRN 02/20/15 [History] Furosemide [Lasix] 20 mg PO DAILY #4 tablet 03/18/15 [Rx] Calcium Carbonate [Calcium] 500 mg PO QID 07/26/15 [History] Ergocalciferol (VITAMIN D2) [Vitamin D2 (50,000 UNIT)] 50,000 unit PO FR [History] Potassium Chloride [K-Tab ER] 10 meq PO Q72H 07/26/15 [History] Alendronate Sodium [Fosamax] 70 mg PO TU 04/04/16 [History] Aspirin 81 mg PO DAILY 04/04/16 [History] Docusate Sodium [Colace] 100 mg PO DAILY PRN 04/04/16 [History] Ondansetron HCl [Zofran] 4 mg PO Q6H PRN 04/04/16 [History] Ranitidine HCl [Acid Student Counsellor] 150 mg PO BID 06/15/16 [History] Chlorpheniramine/Dextromethorp [Coricidin Hbp Cough & Cold Tab] 2 cap PO Q4H PRN 07/08/16 [History] Dextran 70/Hypromellose [Artificial Tears] 1 drop OP BID PRN 07/08/16 [History] Diclofenac Sodium [Voltaren] 1 appl TP QID 07/08/16 [History] Gabapentin [Neurontin] 300 mg PO BID 07/08/16 [History] Ipratropium/Albuterol Neb [Duoneb] 3 ml IH Q4HR PRN 11/07/16 [History] Polyethylene Glycol 3350 [Purelax] 17 gm PO DAILY PRN 11/07/16 [History] OxyCODONE Immed Rel [Roxicodone 5 MG] 5 mg PO BID PRN #12 tablet 11/10/16 [Rx] amLODIPine [Norvasc] 5 mg PO DAILY #30 tablet 11/10/16 [Rx] ALPRAZolam [Xanax 0.25 MG Tablet] 0.25 mg PO BID PRN 01/05/17 [History] Acetaminophen/Chlorpheniramine [Coricidin HBP Cold & Flu Tab] 2 each PO Q4HR PRN 01/05/17 [History] Ciprofloxacin OPTH Soln [Ciloxan OPTH Soln] 1 drop RIGHT EYE HS 01/05/17 [ History] Mv-Mn/FA/Vit K/Lycop/Lut/Coq10 [Daily Multivitamin Capsule] 1 each PO DAILY [History] Oxycodone HCl 10 mg PO Q4H PRN 01/05/17 [History] Sodium Chloride [Bell] 1 spray NS TID PRN 01/05/17 [History] Allergies levofloxacin Allergy (Mild, Verified 01/05/17 19:37) unknown cephalexin [From Keflex] Allergy (Unknown, Verified 01/05/17 19:37) unknown clindamycin Allergy (Unknown, Verified 01/05/17 19:37) See Comments Erythromycin Base Allergy (Unknown, Verified 01/05/17 19:37) unknown hydrochlorothiazide [From Aldoril] Allergy (Unknown, Verified 01/05/17 19:37) unknown ibuprofen [From Motrin] Allergy (Unknown, Verified 01/05/17 19:37) See Comments unknown ketorolac [From Toradol] Allergy (Unknown, Verified 01/05/17 19:37) See Comments unknown methyldopa Allergy (Unknown, Verified 01/05/17 19:37) unknown sulfamethoxazole [From Bactrim] Allergy (Verified 01/05/17 19:37) See Comments trimethoprim [From Bactrim] Allergy (Verified 01/05/17 19:37) See Comments vancomycin Adverse Reaction (Unknown, Verified 01/05/17 19:37) Red Man Syndrome - Constitutional Constitutional ROS PAL: decreased appetite, fatigue, no chills, no fever(s), no weight loss - EENT Eyes: no change in vision Ears: no decreased hearing Ears, nose, mouth, throat: other ("coughing" with meals ), no change in voice, no dry mouth, no hoarseness, no sore throat - Cardiovascular Cardiovascular ROS: no chest pain, no chest pain with activity, no dyspnea on exertion, no irregular heart rhythm, no palpitations, no pedal edema - Respiratory Respiratory: cough, dyspnea, no wheezing Additional comments: wears O2 at night - Gastrointestinal Gastrointestinal: no abdominal pain, no constipation, no diarrhea, no nausea, no vomiting - Genitourinary Palliative ROS female: no change in urinary stream, no difficulty voiding, no dysuria - Musculoskeletal Musculoskeletal ROS IM: muscle weakness - Integumentary ROS Integumentary: no sores, no wounds - Neurological Neurological ROS: weakness (global), no focal weakness, no lack of coordination - Psychiatric Psychiatric general PM: no change in appetite Palliative Care-Exam - Constitutional Vitals: Temp Pulse Resp BP Pulse Ox 98.9 F 78 15 107/67 99 01/06/17 11:33 01/06/17 11:33 01/06/17 11:33 01/06/17 11:33 01/06/17 11:33 General appearance: Present: cooperative Exam: 89 year old female appearing chronically ill. - Eye Eye exam: Present: EOMI - ENT ENT exam: Present: mucous membranes moist - Respiratory Respiratory exam: Present: decreased breath sounds. Absent: accessory muscle use, respiratory distress, tachypnea - Cardiovascular Cardiovascular exam: Present: RRR. Absent: systolic murmur, tachycardia - GI/Abdominal Exam GI/Abdominal exam: Present: normal bowel sounds, soft. Absent: distended, firm , guarding, tenderness - Catheter Type: Urethral ([place]) - Expanded Upper Extremities Exam Forearm wrist exam: Present: ecchymosis - Neurological Exam Neurological exam: Present: alert (oriented to person and place) - Psychiatric Psychiatric exam: Absent: agitated, anxious - Skin Skin exam: Present: dry, warm Internal Medicine - CN: Reslt - Labs CBC & Chem 7: 01/06/17 07:48 01/06/17 07:48 Labs: Short CBC 01/06/17 Range/Units 07:48 WBC 12.2 H (4.3-11.1) K/mcL Hgb 9.6 L D (11.5-15.4) g/dL Hct 27.6 L (35.3-44.9) % Plt Count 138 L (140-400) K/mcL Neutrophils # 9.8 H (1.6-8.9) K/mcL BMP 01/05/17 01/06/17 22:22 07:48 Sodium 120 L* 121 L Potassium 4.9 H 4.7 H Chloride 88 L 90 L Carbon Dioxide 22 24 BUN 21 H 21 H Creatinine 1.28 H 1.19 H Glucose 107 H 80 Calcium 9.3 8.7 Cardiac Enzymes 01/05/17 01/06/17 Range/Units 22:22 07:48 Troponin I 0.02 0.01 (0-0.03) ng/mL - ABG Interpretation ABG results: PT/INR, D-dimer PT 10.9 Seconds (9.4-12.1) 01/05/17 17:05 - Impressions Impressions Retroperitoneum Ultrasound 01/05/17 21:37 IMPRESSION: 1. Benign bilateral renal cysts. 2. No hydronephrosis. D/ / 01/06/2017 07:09:05 Carloz Iyer MD / michelle Interpreting Provider: Carloz Iyer MD Consult Discharge Plan - Plan Referrals: NO,PCP [Primary Care Provider] - Palliative Quality Palliative Quality: Screen for Code Status: Yes, Screen for Goals of Care: Yes, Screen for Pain: Yes, If Pain Regimen Started, Initiate Bowel Regimen: Yes, Screen for Nausea/Vomitting: Yes Code Status: 01/05/17 20:29 Resuscitation Status: Active [RES] Routine Comment: Resuscitation Status: DNR-Comfort Care-Arrest
--- NOTE | 2017-01-06 16:21 | Internal Med Progress Note ---
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 He will cover with Zosyn renally dosed, urine cx growing gram negative rods. clinically improving. Qualifiers: Urinary tract infection type: acute cystitis Hematuria presence: with hematuria Qualified Code(s): N30.01 - Acute cystitis with hematuria (3) Hyponatremia Current Visit: No Status: Acute Assessment and plan: appreciate renal recommendation. monitor sodium levels closely continue IV lasix, f/u TSH. urine sodium is 28. clinically more alert, not confused. will order speech eval to evaluate for aspiration. less likely SIADH. (4) Goals of care, counseling/discussion Current Visit: Yes Status: Acute Assessment and plan: Discussed goals of care with patient's sister/POA (Faye Cuenca). Reviewed medical history and current plan of care. Her sister had just initiated a [facility] referral 2 days prior to admission. Sister supports DNR status and wishes no heroic measures in the event of a cardiac arrest. Plan for additional family meeting tomorrow around noon. When ready to discharge, will continue [facility] hospice referral per sister/POA request. - Subjective Interval history: Patient seen at the bedside, complains of stuffiness in the throat and left ear. Denies any burning micturition, increased frequency. - Constitutional Vitals: Temp Pulse Resp BP Pulse Ox 98.3 F 68 16 107/63 99 01/06/17 15:31 01/06/17 15:31 01/06/17 15:31 01/06/17 15:31 01/06/17 15:31 General appearance: Present: A&O X 3 Exam: Head Head exam: Present: atraumatic, normocephalic - Eye Eye exam: Present: PERRL, conjuntiva pink, sclera anicteric Pupils: Present: PERRL - Neck Neck exam general surgery: Present: supple, trachea midline. Absent: lymphadenopathy - Respiratory Respiratory exam: Present: rales. Absent: accessory muscle use, rhonchi, wheezes - Cardiovascular Cardiovascular exam: Present: RRR, +S1, +S2. Absent: diastolic murmur, gallop, rubs, systolic murmur - GI/Abdominal GI/Abdominal exam: Present: normal bowel sounds, soft, no peritoneal signs. Absent: distended, tenderness - Extremities Exam Extremities exam: Present: warm, radial pulses palpable and symetrical. Absent : calf tenderness, cyanotic, pedal edema - Neurological Exam Neurological exam: Present: CN II-XII intact, oriented X3, no focal deficits. Absent: pronater drift, facial droop, speech deficit - Skin Skin exam: Present: dry, intact Internal Medicine: Result - Labs CBC & Chem 7: 01/06/17 07:48 01/06/17 13:49 Labs: Short CBC 01/06/17 Range/Units 07:48 WBC 12.2 H (4.3-11.1) K/mcL Hgb 9.6 L D (11.5-15.4) g/dL Hct 27.6 L (35.3-44.9) % Plt Count 138 L (140-400) K/mcL Neutrophils # 9.8 H (1.6-8.9) K/mcL BMP 01/05/17 01/06/17 01/06/17 22:22 07:48 13:49 Sodium 120 L* 121 L 124 L Potassium 4.9 H 4.7 H Chloride 88 L 90 L Carbon Dioxide 22 24 BUN 21 H 21 H Creatinine 1.28 H 1.19 H Glucose 107 H 80 Calcium 9.3 8.7 Cardiac Enzymes 01/05/17 01/06/17 Range/Units 22:22 07:48 Troponin I 0.02 0.01 (0-0.03) ng/mL - ABG Interpretation ABG results: PT/INR, D-dimer PT 10.9 Seconds (9.4-12.1) 01/05/17 17:05 - Impressions Impressions Retroperitoneum Ultrasound 01/05/17 21:37 IMPRESSION: 1. Benign bilateral renal cysts. 2. No hydronephrosis. D/ / 01/06/2017 07:09:05 Carloz Iyer MD / michelle Interpreting Provider: Carloz Iyer MD Consult Discharge Plan - Plan Referrals: NO,PCP [Primary Care Provider] -
[2017-01-06] MEDS ORDERED: Magnesium Sulfate 2 GM in D5% in Water 100 ML IVPB ONE (16:58)
[2017-01-06] MEDS ORDERED: 0.9 % Sodium Chloride 1,000 ML IVC SCH (17:00)
[2017-01-06] MEDS: *HR* HYDROcodone/Acet 5/325 mg TABLET PO PRN ×2 (17:29→23:33)
[2017-01-07] MEDS ORDERED: D5% in Water 1,000 ML IVC SCH (08:00)
--- NOTE | 2017-01-07 08:28 | Electrocardiograph Report ---
[address] [place] [address] Test Date: 2017-01-05 Pat Name: Jennifer Cuenca Department: 105 Room: 3B41 Gender: F Program Rep: RON : 1925 Requested By: Rc Wang Order Number: [id number] Reading MD: George Bennett MD Measurements Intervals [place] Rate: 92 P: -41 NH: 167 QRS: -14 QRSD: 83 T: 1 QT: 318 QTc: 367 Interpretive Statements SINUS RHYTHM INFERIOR MYOCARDIAL INFARCTION, PROBABLY OLD Electronically Signed On 01-07-2017 8:26:56 EDT by George Bennett MD
[2017-01-07] MEDS: Piperacillin/Tazobactam 3.375 GM in D5% in Water (Mini-Bag+) 100 ML IVPB SCH (10:01)
[2017-01-07] MEDS: *HR* Heparin 5,000 UNIT/ML VIAL SQ SCH ×2 (10:02→17:25)
[2017-01-07] MEDS: Folic Acid 1 MG TABLET PO SCH (10:02)
[2017-01-07] MEDS: Aspirin 81 MG TAB.CHEW PO SCH (10:02)
--- NOTE | 2017-01-07 10:39 | Palliative Progress Note ---
Date of Encounter: 01/07/17 Time of Encounter: 10:00 - Assessment and plan (1) Bilateral knee pain Current Visit: Yes Status: Acute Assessment and plan: Patient reports that bilateral knees have arthritis and ache all the time. At baseline, she is unable to bear weight or ambulate. She rates her ache at 3/10 and reports that [place] has effective in relieving it. Last dose was last night at bedtime to help with sleeping. Position for comfort. Continue current regimen. Qualifiers: Chronicity: chronic Qualified Code(s): M25.561 - Pain in right knee; M25.562 - Pain in left knee; G89.29 - Other chronic pain (2) Altered mental status Current Visit: No Status: Acute Assessment and plan: Patient admitted with UTI and now is more alert and oriented. Continue antibiotics, force po fluids. Qualifiers: Altered mental status type: unspecified Qualified Code(s): R41.82 - Altered mental status, unspecified (3) Cholangiocarcinoma Current Visit: Yes Status: Chronic Assessment and plan: Patient no seeking chemotherapy and will transition to [facility] hospice [place]. (4) UTI (urinary tract infection) Current Visit: Yes Status: Acute Assessment and plan: Continue Antibiotics and monitor output. Qualifiers: Urinary tract infection type: acute cystitis Hematuria presence: with hematuria Qualified Code(s): N30.01 - Acute cystitis with hematuria (5) Goals of care, counseling/discussion Current Visit: Yes Status: Acute Assessment and plan: Patient plan is to return to [facility] upon DC. Called Sara ([phone]) at [facility] hospice and patient is currently not enrolled but informed them of desire and previous referral prior to admit. Will F/U with sister Faye to confirm transition once she returns to ECF. Patient with Cholangiocarcinoma not seeking treatment. - Time Spent With Patient Total time spent is greater than 50% in coordination of care (as documented) at patient's floor/unit and/or counseling patient: 25 - 35 minutes - Subjective Interval history: Patient sitting up in the chair. Alert and oriented. Woods catheter with moderate amount clear yellow urine. Patient reports feeling better and desires to go home. Chart reviewed and lab assessed. - Constitutional Vitals: Abnormal lab results WBC 12.2 K/mcL (4.3-11.1) H 01/06/17 07:48 RBC 3.29 M/mcL (3.82-4.97) L 01/06/17 07:48 Hgb 9.6 g/dL (11.5-15.4) L D 01/06/17 07:48 Hct 27.6 % (35.3-44.9) L 01/06/17 07:48 Plt Count 138 K/mcL (140-400) L 01/06/17 07:48 Neutrophils # 9.8 K/mcL (1.6-8.9) H 01/06/17 07:48 APTT 23.8 Seconds (26.0-36.0) L 01/05/17 17:05 Sodium 129 mEq/L (136-145) L 01/07/17 04:27 Potassium 4.7 mEq/L (3.5-4.5) H 01/06/17 07:48 Chloride 90 mEq/L (98-109) L 01/06/17 07:48 BUN 21 mg/dL (7-20) H 01/06/17 07:48 Creatinine 1.19 mg/dL (0.57-1.11) H 01/06/17 07:48 Est GFR ( Amer) 52 (> 60) L 01/06/17 07:48 Est GFR (Non-Af Amer) 43 (> 60) L 01/06/17 07:48 Serum Osmolality 268 mOsm/kg (280-300) L 01/06/17 13:49 Calculated Osmolality 254 (280-300) L 01/06/17 07:48 Magnesium 1.3 mg/dL (1.6-2.6) L 01/06/17 07:48 AST 39 Units/L (5-34) H 01/05/17 17:05 Alkaline Phosphatase 467 Units/L (38-126) H 01/05/17 17:05 B-Natriuretic Peptide 229 pg/mL (0-100) H 01/05/17 22:22 Albumin 3.1 g/dL (3.5-5.0) L 01/05/17 17:05 Albumin/Globulin Ratio 1.0 (1.1-2.2) L 01/05/17 17:05 Ur Specific [place] 1.007 (1.010-1.025) L 01/05/17 16:57 Urine Blood Moderate (Negative) H 01/05/17 16:57 Ur Leukocyte Esterase Moderate (Negative) H 01/05/17 16:57 Urine Microscopic WBC 5-15 per hpf (0-3) H 01/05/17 16:57 Ur Culture Indicated? YES (NO) A 01/05/17 16:57 Urine Osmolality 182 mOsm/kg (300-1090) L 01/06/17 15:14 - Head Head exam: Present: atraumatic, normal inspection, normocephalic - Eye Eye exam: Present: PERRL Pupils: Present: PERRL - ENT ENT exam: Present: mucous membranes moist - Neck Neck exam: Present: full ROM - Respiratory Respiratory exam: Present: CTAB - Cardiovascular Cardiovascular exam: Present: RRR, +S1, +S2 - GI/Abdominal GI/Abdominal exam: Present: normal bowel sounds, soft - Rectal Rectal exam: Present: deferred - Extremities Exam Extremities exam: Present: tenderness (Bilateral knee stiffness and weakness) - Back Exam Back exam: Present: tenderness - Neurological Exam Neurological exam: Present: alert, oriented X3 - Psychiatric Psychiatric exam: Present: normal affect - Skin Skin exam: Present: pallor, warm Palliative Quality Palliative Quality: Screen for Code Status: Yes, Screen for Goals of Care: Yes, Screen for Pain: Yes, If Pain Regimen Started, Initiate Bowel Regimen: Yes, Screen for Nausea/Vomitting: Yes Code Status: 01/05/17 20:29 Resuscitation Status: Active [RES] Routine Comment: Resuscitation Status: DNR-Comfort Care-Arrest - Labs CBC & Chem 7: 01/06/17 07:48 01/07/17 04:27 Labs: Laboratory Results - last 24 hr 01/06/17 01/06/17 01/06/17 13:49 13:49 13:49 Sodium 124 L Serum Osmolality 268 L TSH 2.218 Urine Osmolality 01/06/17 01/06/17 01/07/17 15:14 20:02 04:27 Sodium 128 L 129 L Serum Osmolality TSH Urine Osmolality 182 L - Impressions Impressions Retroperitoneum Ultrasound 01/05/17 21:37 IMPRESSION: 1. Benign bilateral renal cysts. 2. No hydronephrosis. D/ / 01/06/2017 07:09:05 Carloz Iyer MD / michelle Interpreting Provider: Carloz Iyer MD - ABG Interpretation ABG results: PT/INR, D-dimer PT 10.9 Seconds (9.4-12.1) 01/05/17 17:05 Consult Discharge Plan - Plan Referrals: NO,PCP [Primary Care Provider] -
[2017-01-07] MEDS: Acetaminophen 325 MG TABLET PO PRN ×2 (13:52→19:38)
--- NOTE | 2017-01-07 15:42 | Internal Med Progress Note ---
Date of Encounter: 01/07/17 Time of Encounter: 15:40 - Assessment and plan (1) Cholangiocarcinoma Current Visit: Yes Status: Chronic Assessment and plan: 1 patient is not receiving any radiation chemotherapy or surgical intervention by choice-she is a DNR CCA appreciate palliative recommendations presently she denies any pain or discomfort (2) UTI (urinary tract infection) Current Visit: Yes Status: Acute Assessment and plan: patient does have positive urinalysis for UTI. urine cx growing pseudomonas will stop zosyn and start levoflox to complete 7 days of treatment clinically improving. Qualifiers: Urinary tract infection type: acute cystitis Hematuria presence: with hematuria Qualified Code(s): N30.01 - Acute cystitis with hematuria (3) Hyponatremia Current Visit: No Status: Acute Assessment and plan: appreciate renal recommendation. monitor sodium levels closely TSH is normal urine sodium is 28. clinically more alert, not confused. less likely SIADH, sodium is already 130 today, will stop lasix for now, will avoid overcorection no change in mental status. (4) Goals of care, counseling/discussion Current Visit: Yes Status: Acute Assessment and plan: Discussed goals of care with patient's sister/POA (Faye Cuenca). Reviewed medical history and current plan of care. Her sister had just initiated a [facility] hosp[facility] referral 2 days prior to admission. Sister supports DNR status and wishes no heroic measures in the event of a cardiac arrest. Plan for additional family meeting tomorrow around noon. When ready to discharge, will continue [facility] hosp[facility] referral per sister/POA request. - Subjective Interval history: Patient seen at the bedside, appears much alert and awake. Denies any burning micturition, increased frequency. - Constitutional Vitals: Temp Pulse Resp BP Pulse Ox 98 F 70 14 130/77 100 01/07/17 11:51 01/07/17 11:51 01/07/17 11:51 01/07/17 11:51 01/07/17 11:51 General appearance: Present: A&O X 3 Exam: Head Head exam: Present: atraumatic, normocephalic - Eye Eye exam: Present: PERRL, conjuntiva pink, sclera anicteric Pupils: Present: PERRL - Neck Neck exam general surgery: Present: supple, trachea midline. Absent: lymphadenopathy - Respiratory Respiratory exam: Present: rales. Absent: accessory muscle use, rhonchi, wheezes - Cardiovascular Cardiovascular exam: Present: RRR, +S1, +S2. Absent: diastolic murmur, gallop, rubs, systolic murmur - GI/Abdominal GI/Abdominal exam: Present: normal bowel sounds, soft, no peritoneal signs. Absent: distended, tenderness - Extremities Exam Extremities exam: Present: warm, radial pulses palpable and symetrical. Absent : calf tenderness, cyanotic, pedal edema - Neurological Exam Neurological exam: Present: CN II-XII intact, oriented X3, no focal deficits. Absent: pronater drift, facial droop, speech deficit - Skin Skin exam: Present: dry, intact Internal Medicine: Result - Labs CBC & Chem 7: 01/06/17 07:48 01/07/17 12:43 Labs: BMP 01/06/17 01/07/17 01/07/17 20:02 04:27 12:43 Sodium 128 L 129 L 130 L - ABG Interpretation ABG results: PT/INR, D-dimer PT 10.9 Seconds (9.4-12.1) 01/05/17 17:05 - Impressions Impressions Retroperitoneum Ultrasound 01/05/17 21:37 IMPRESSION: 1. Benign bilateral renal cysts. 2. No hydronephrosis. D/ / 01/06/2017 07:09:05 Carloz Iyer MD / michelle Interpreting Provider: Carloz Iyer MD Consult Discharge Plan - Plan Referrals: NO,PCP [Primary Care Provider] -
[2017-01-07] MEDS ORDERED: Levofloxacin 500 MG/100 ML 500 MG/100 ML BAG IVPB SCH (16:00)
[2017-01-07] MEDS: *HR* HYDROcodone/Acet 5/325 mg TABLET PO PRN (17:25)
[2017-01-08 03:28] LABS: Basophils % 0.5 %; Hematocrit 32.9 % (35.3-44.9); Immature Granulocytes % 1.9 % (0-4); Lymphocytes # 1.3 K/mcL (0.6-4.6); Lymphocytes % 17.1 %; Mean Corpuscular Hemoglobin 28.8 pg (28.0-33.3); Mean Corpuscular Volume 84.6 fL (83.0-100.0); Mean Platelet Volume 8.9 fL (9.4-12.4); Monocytes # 0.8 K/mcL (0.0-1.3); Monocytes % 10.6 %; Neutrophils # 5.1 K/mcL (1.6-8.9); Platelet Count 182 K/mcL (140-400); Red Blood Count 3.89 M/mcL (3.82-4.97); Red Cell Distribution Width 13.9 % (11.5-14.5); Segmented Neutrophils % 69.9 %
[2017-01-08 03:29] LABS: Hemoglobin 11.2 g/dL (11.5-15.4)
[2017-01-08 03:40] LABS: BUN/Creatinine Ratio 24 (6-26); Blood Urea Nitrogen 20 mg/dL (7-20); Calcium 8.7 mg/dL (8.6-10.8); Carbon Dioxide 26 mEq/L (19-29); Chloride 98 mEq/L (98-109); Glucose 89 mg/dL (70-99); Osmolality,Calculated 274 (280-300); Potassium 3.6 mEq/L (3.5-4.5); Sodium 131 mEq/L (136-145); eGFR For African Americans > 60 (> 60); eGFR For Non-African Americans > 60 (> 60)
[2017-01-08] MEDS: *HR* HYDROcodone/Acet 5/325 mg TABLET PO PRN (06:09)
[2017-01-08] MEDS: *HR* Heparin 5,000 UNIT/ML VIAL SQ SCH (06:09)
[2017-01-08] MEDS ORDERED: Ondansetron 4 MG/2 ML VIAL IVP ONE (07:34)
[2017-01-08] MEDS ORDERED: Ondansetron 4 MG/2 ML VIAL IVP PRN (07:37)
[2017-01-08] MEDS: Aspirin 81 MG TAB.CHEW PO SCH (09:50)
[2017-01-08] MEDS: Acetaminophen 325 MG TABLET PO PRN (09:50)
[2017-01-08] MEDS: Folic Acid 1 MG TABLET PO SCH (09:50)
--- NOTE | 2017-01-08 10:21 | Palliative Progress Note ---
Date of Encounter: 01/08/17 Time of Encounter: 10:18 - Assessment and plan (1) Bilateral knee pain Current Visit: Yes Status: Acute Assessment and plan: Ms. Zafar is using [place] for her chronic bilateral knee pain. She reports an improvement of pain, but not as significant as when she takes oxycodone. Currently rates pain 8/10, but recently took pain mediations. 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 Zafar is not currently seeking treatment. (3) UTI (urinary tract infection) Current Visit: Yes Status: Acute Assessment and plan: UTI positive for pseudomonas, sensitive ti Cipro. Qualifiers: Urinary tract infection type: acute cystitis Hematuria presence: with hematuria Qualified Code(s): N30.01 - Acute cystitis with hematuria (4) Goals of care, counseling/discussion Current Visit: Yes Status: Acute Assessment and plan: Plan for discharge to ECF with ATB therapy when medically stable. Upon transition to ECF, she will consult with [facility] hospice (initiated prior to hospitalization). (5) Hyponatremia Current Visit: No Status: Acute - Time Spent With Patient Total time spent is greater than 50% in coordination of care (as documented) at patient's floor/unit and/or counseling patient: - Subjective Interval history: Ms. Zafar is sitting up in bed talking to her sister, Faye, on the telephone. She is alert and oriented to person/place/and time, and denies needs. Ms. Zafar does still reports chronic bilateral knee pain currently rated 8/10, but she recently took her pain medications. - Constitutional Vitals: Abnormal lab results Hgb 11.2 g/dL (11.5-15.4) L D 01/08/17 03:19 Hct 32.9 % (35.3-44.9) L 01/08/17 03:19 MPV 8.9 fL (9.4-12.4) L 01/08/17 03:19 APTT 23.8 Seconds (26.0-36.0) L 01/05/17 17:05 Sodium 131 mEq/L (136-145) L 01/08/17 03:19 Serum Osmolality 268 mOsm/kg (280-300) L 01/06/17 13:49 Calculated Osmolality 274 (280-300) L 01/08/17 03:19 Magnesium 1.3 mg/dL (1.6-2.6) L 01/06/17 07:48 AST 39 Units/L (5-34) H 01/05/17 17:05 Alkaline Phosphatase 467 Units/L (38-126) H 01/05/17 17:05 B-Natriuretic Peptide 229 pg/mL (0-100) H 01/05/17 22:22 Albumin 3.1 g/dL (3.5-5.0) L 01/05/17 17:05 Albumin/Globulin Ratio 1.0 (1.1-2.2) L 01/05/17 17:05 Ur Specific [place] 1.007 (1.010-1.025) L 01/05/17 16:57 Urine Blood Moderate (Negative) H 01/05/17 16:57 Ur Leukocyte Esterase Moderate (Negative) H 01/05/17 16:57 Urine Microscopic WBC 5-15 per hpf (0-3) H 01/05/17 16:57 Ur Culture Indicated? YES (NO) A 01/05/17 16:57 Urine Osmolality 182 mOsm/kg (300-1090) L 01/06/17 15:14 General appearance: Present: cooperative Exam: 89 year old female, alert and pleasant. - Eye Eye exam: Present: EOMI - Respiratory Respiratory exam: Present: decreased breath sounds. Absent: accessory muscle use, respiratory distress, wheezes, tachypnea - Cardiovascular Cardiovascular exam: Present: RRR - GI/Abdominal GI/Abdominal exam: Present: normal bowel sounds, soft. Absent: tenderness - Extremities Exam Extremities exam: Absent: pedal edema - Neurological Exam Neurological exam: Present: alert, oriented X3, no focal deficits, strengths equal and symetr throughout - Psychiatric Psychiatric exam: Absent: agitated, anxious - Skin Skin exam: Present: dry, warm Palliative Quality Palliative Quality: Screen for Code Status: Yes, Screen for Goals of Care: Yes, Screen for Pain: Yes, If Pain Regimen Started, Initiate Bowel Regimen: Yes, Screen for Nausea/Vomitting: Yes Code Status: 01/05/17 20:29 Resuscitation Status: Active [RES] Routine Comment: Resuscitation Status: DNR-Comfort Care-Arrest - Labs CBC & Chem 7: 01/08/17 03:19 01/08/17 03:19 Labs: Laboratory Results - last 24 hr 01/07/17 01/07/17 01/08/17 12:43 19:28 03:19 WBC 7.4 RBC 3.89 Hgb 11.2 L D Hct 32.9 L MCV 84.6 MCH 28.8 MCHC 34.0 RDW 13.9 Plt Count 182 MPV 8.9 L Immature Gran % 1.9 Seg Neutrophils % 69.9 Lymphocytes % 17.1 Monocytes % 10.6 Eosinophils % 0.0 Basophils % 0.5 Neutrophils # 5.1 Lymphocytes # 1.3 Monocytes # 0.8 Eosinophils # 0.0 Basophils # 0.0 Sodium 130 L 129 L Potassium Chloride Carbon Dioxide BUN Creatinine Est GFR ( Amer) Est GFR (Non-Af Amer) BUN/Creatinine Ratio Glucose Calculated Osmolality Calcium 01/08/17 03:19 WBC RBC Hgb Hct MCV MCH MCHC RDW Plt Count MPV Immature Gran % Seg Neutrophils % Lymphocytes % Monocytes % Eosinophils % Basophils % Neutrophils # Lymphocytes # Monocytes # Eosinophils # Basophils # Sodium 131 L Potassium 3.6 D Chloride 98 Carbon Dioxide 26 BUN 20 Creatinine 0.82 Est GFR ( Amer) > 60 Est GFR (Non-Af Amer) > 60 BUN/Creatinine Ratio 24 Glucose 89 Calculated Osmolality 274 L Calcium 8.7 - ABG Interpretation ABG results: PT/INR, D-dimer PT 10.9 Seconds (9.4-12.1) 01/05/17 17:05 Consult Discharge Plan - Plan Referrals: NO,PCP [Primary Care Provider] -
[2017-01-08 11:15] VITALS: BP 126/71
--- NOTE | 2017-01-08 11:27 | Discharge Summary ---
Date of Encounter: 01/08/17 Time of Encounter: 11:24 - Discharge Diagnosis (1) Cholangiocarcinoma Priority: Secondary Status: Chronic (2) UTI (urinary tract infection) Priority: Primary Status: Acute Qualifiers: Urinary tract infection type: acute cystitis Hematuria presence: with hematuria Qualified Code(s): N30.01 - Acute cystitis with hematuria (3) Hyponatremia Priority: Primary Status: Acute (4) Goals of care, counseling/discussion Priority: Secondary Status: Acute - Discharge Medications Prescriptions: Ciprofloxacin [Cipro] 500 mg PO BID 5 Days Home Medications: Cilostazol 50 mg PO BID 02/20/15 [History] Citalopram Hydrobromide [Celexa] 20 mg PO DAILY 02/20/15 [History] Ferrous Sulfate 325 mg PO BID 02/20/15 [History] Folic Acid 1 mg PO DAILY 02/20/15 [History] Hydroxychloroquine Sulfate [Plaquenil] 200 mg PO BID 02/20/15 [History] Loperamide HCl [Diamode] 2 mg PO Q6H PRN 02/20/15 [History] Furosemide [Lasix] 20 mg PO DAILY #4 tablet 03/18/15 [Rx] Calcium Carbonate [Calcium] 500 mg PO QID 07/26/15 [History] Ergocalciferol (VITAMIN D2) [Vitamin D2 (50,000 UNIT)] 50,000 unit PO FR [History] Potassium Chloride [K-Tab ER] 10 meq PO Q72H 07/26/15 [History] Alendronate Sodium [Fosamax] 70 mg PO TU 04/04/16 [History] Aspirin 81 mg PO DAILY 04/04/16 [History] Docusate Sodium [Colace] 100 mg PO DAILY PRN 04/04/16 [History] Ondansetron HCl [Zofran] 4 mg PO Q6H PRN 04/04/16 [History] Ranitidine HCl [Acid Insurance Plan Specialist] 150 mg PO BID 06/15/16 [History] Chlorpheniramine/Dextromethorp [Coricidin Hbp Cough & Cold Tab] 2 cap PO Q4H PRN 07/08/16 [History] Dextran 70/Hypromellose [Artificial Tears] 1 drop OP BID PRN 07/08/16 [History] Diclofenac Sodium [Voltaren] 1 appl TP QID 07/08/16 [History] Gabapentin [Neurontin] 300 mg PO BID 07/08/16 [History] Ipratropium/Albuterol Neb [Duoneb] 3 ml IH Q4HR PRN 11/07/16 [History] Polyethylene Glycol 3350 [Purelax] 17 gm PO DAILY PRN 11/07/16 [History] amLODIPine [Norvasc] 5 mg PO DAILY #30 tablet 11/10/16 [Rx] ALPRAZolam [Xanax 0.25 MG Tablet] 0.25 mg PO BID PRN 01/05/17 [History] Acetaminophen/Chlorpheniramine [Coricidin Hbp Cold & Flu Tab] 2 each PO Q4HR PRN 01/05/17 [History] Ciprofloxacin OPTH Soln [Ciloxan OPTH Soln] 1 drop RIGHT EYE HS 01/05/17 [ History] Mv-Mn/FA/Vit K/Lycop/Lut/Coq10 [Daily Multivitamin Capsule] 1 each PO DAILY [History] Sodium Chloride [[place]] 1 spray NS TID PRN 01/05/17 [History] Ciprofloxacin [Cipro] 500 mg PO BID 5 Days 01/08/17 [Rx] Oxycodone HCl 10 mg PO Q4H PRN #30 01/08/17 [Rx] Allergies/Adverse Reactions: Allergies levofloxacin Allergy (Mild, Verified 01/05/17 19:37) unknown cephalexin [From Keflex] Allergy (Unknown, Verified 01/05/17 19:37) unknown clindamycin Allergy (Unknown, Verified 01/05/17 19:37) See Comments Erythromycin Base Allergy (Unknown, Verified 01/05/17 19:37) unknown hydrochlorothiazide [From Aldoril] Allergy (Unknown, Verified 01/05/17 19:37) unknown ibuprofen [From Motrin] Allergy (Unknown, Verified 01/05/17 19:37) See Comments unknown ketorolac [From Toradol] Allergy (Unknown, Verified 01/05/17 19:37) See Comments unknown methyldopa Allergy (Unknown, Verified 01/05/17 19:37) unknown sulfamethoxazole [From Bactrim] Allergy (Verified 01/05/17 19:37) See Comments trimethoprim [From Bactrim] Allergy (Verified 01/05/17 19:37) See Comments vancomycin Adverse Reaction (Unknown, Verified 01/05/17 19:37) Red Man Syndrome Procedures/tests Complete & Pending: Procedures Performed prior 72 hours Category Date Time Status Retroperitoneal Ultrasound - Complete [US Exams 01/05/17 21:37 Completed retroperitoneal comp] [US] Routine Date of admission: 01/05/17 20:29 Primary care physician: PCP RAMON Consults: 01/05/17 21:21 Consult to Nephrology [CONS] Routine Consulting Provider: [facility]/NIGEL/KYE Reason for Consult: hyponatremia, PIOTR Time Notified: 21:22 Call Completed: Yes 01/05/17 21:22 Consult to Palliative Care [CONS] Routine Comment: Consulting Provider: [facility] [place] Reason for Consult: renal mass, cholongiocarcinoma Time Notified: 21:25 Call Completed: No 01/06/17 16:25 Consult to Speech Therapy [CONS] Routine Comment: Evaluate, develop and implement POC Reason for Consult: evaluate for risk of aspiration Call Completed: No Discharging clinician: Ori Olmstead Anticipated date of discharge: 01/08/17 - Patient Status Disposition: Transfer SNF Condition: Fair Functional capacity at discharge: wheelchair bound Overall status at discharge: patient is back to baseline - Discharge Instructions Follow Up With: NO,PCP [Primary Care Provider] - - Diet and Activity Activity: as per physical therapy Diet: advance to your usual diet Interval History: Patient is a 89-year-old female with a past history of CHF, GERD, hyperlipidemia , hypertension, liver disease, malignancy, arthritis and osteoporosis. She presents to the ED with complaints of shortness of breath. Patient is a poor historian and most information is obtained from medical records. She is a resident at an [facility]. Initial evaluation in the ED revealed sodium of 118 and chest x-ray revealed bibasilar atelectasis. she was noted to have some leg swelling , patient does have history of CHF and was treated with IV lasix with fluid restriction. Patient was also noted to have UTI abd was started on empiric IV antibiotics for UTI. Patient also has a diagnosis of cholangiocarcinoma She is not on any active treatment and is likely not a surgical candidate. She has been evaluated by oncology and urology in the recent past. renal was consulted and cara sodium level has improved , cara urine cx grew pseudomonas sensitive to cipro. the mental status has improved with the treatment , she is being dc back to NH with oral cipro. Hospital course: Ms. Cuenca is a 89 year old female - Time Spent with Patient Total time spent providing and/or coordinating discharge services: - Constitutional Vitals: Temp Pulse Resp BP Pulse Ox 98.3 F 94 16 126/71 93 01/08/17 11:13 01/08/17 11:13 01/08/17 11:13 01/08/17 11:13 01/08/17 11:13 General appearance: Present: A&O X 3 Exam: - Head Head exam: Present: atraumatic, normocephalic - Eye Eye exam: Present: PERRL, conjuntiva pink, sclera anicteric Pupils: Present: PERRL - Neck Neck exam general surgery: Present: supple, trachea midline. Absent: lymphadenopathy - Respiratory Respiratory exam: Present: rales. Absent: accessory muscle use, rhonchi, wheezes - Cardiovascular Cardiovascular exam: Present: RRR, +S1, +S2. Absent: diastolic murmur, gallop, rubs, systolic murmur - GI/Abdominal GI/Abdominal exam: Present: normal bowel sounds, soft, no peritoneal signs. Absent: distended, tenderness - Extremities Exam Extremities exam: Present: warm, radial pulses palpable and symetrical. Absent : calf tenderness, cyanotic, pedal edema - Neurological Exam Neurological exam: Present: CN II-XII intact, oriented X3, no focal deficits. Absent: pronater drift, facial droop, speech deficit - Skin Skin exam: Present: dry, intact
--- NOTE | 2017-01-08 11:28 | Physician Discharge Referral ---
ExtendedCare Referral Info Transfer To: f Provider in Charge: ligia reid Institutional Level of Care: Intermediate - Diagnosis (1) Cholangiocarcinoma Status: Chronic (2) UTI (urinary tract infection) Status: Acute (3) Hyponatremia Status: Acute (4) Goals of care, counseling/discussion Status: Acute - Transfer Medications Prescriptions: Ciprofloxacin [Cipro] 500 mg PO BID 5 Days Home Medications: Cilostazol 50 mg PO BID 02/20/15 [History] Citalopram Hydrobromide [Celexa] 20 mg PO DAILY 02/20/15 [History] Ferrous Sulfate 325 mg PO BID 02/20/15 [History] Folic Acid 1 mg PO DAILY 02/20/15 [History] Hydroxychloroquine Sulfate [Plaquenil] 200 mg PO BID 02/20/15 [History] Loperamide HCl [Diamode] 2 mg PO Q6H PRN 02/20/15 [History] Furosemide [Lasix] 20 mg PO DAILY #4 tablet 03/18/15 [Rx] Calcium Carbonate [Calcium] 500 mg PO QID 07/26/15 [History] Ergocalciferol (VITAMIN D2) [Vitamin D2 (50,000 UNIT)] 50,000 unit PO FR [History] Potassium Chloride [K-Tab ER] 10 meq PO Q72H 07/26/15 [History] Alendronate Sodium [Fosamax] 70 mg PO TU 04/04/16 [History] Aspirin 81 mg PO DAILY 04/04/16 [History] Docusate Sodium [Colace] 100 mg PO DAILY PRN 04/04/16 [History] Ondansetron HCl [Zofran] 4 mg PO Q6H PRN 04/04/16 [History] Ranitidine HCl [Acid Engine Head Repairer] 150 mg PO BID 06/15/16 [History] Chlorpheniramine/Dextromethorp [Coricidin Hbp Cough & Cold Tab] 2 cap PO Q4H PRN 07/08/16 [History] Dextran 70/Hypromellose [Artificial Tears] 1 drop OP BID PRN 07/08/16 [History] Diclofenac Sodium [Voltaren] 1 appl TP QID 07/08/16 [History] Gabapentin [Neurontin] 300 mg PO BID 07/08/16 [History] Ipratropium/Albuterol Neb [Duoneb] 3 ml IH Q4HR PRN 11/07/16 [History] Polyethylene Glycol 3350 [Purelax] 17 gm PO DAILY PRN 11/07/16 [History] amLODIPine [Norvasc] 5 mg PO DAILY #30 tablet 11/10/16 [Rx] ALPRAZolam [Xanax 0.25 MG Tablet] 0.25 mg PO BID PRN 01/05/17 [History] Acetaminophen/Chlorpheniramine [Coricidin Hbp Cold & Flu Tab] 2 each PO Q4HR PRN 01/05/17 [History] Ciprofloxacin OPTH Soln [Ciloxan OPTH Soln] 1 drop RIGHT EYE HS 01/05/17 [ History] Mv-Mn/FA/Vit K/Lycop/Lut/Coq10 [Daily Multivitamin Capsule] 1 each PO DAILY [History] Oxycodone HCl 10 mg PO Q4H PRN 01/05/17 [History] Sodium Chloride [[place]] 1 spray NS TID PRN 01/05/17 [History] Ciprofloxacin [Cipro] 500 mg PO BID 5 Days 01/08/17 [Rx] Allergies/Adverse Reactions: Allergies levofloxacin Allergy (Mild, Verified 01/05/17 19:37) unknown cephalexin [From Keflex] Allergy (Unknown, Verified 01/05/17 19:37) unknown clindamycin Allergy (Unknown, Verified 01/05/17 19:37) See Comments Erythromycin Base Allergy (Unknown, Verified 01/05/17 19:37) unknown hydrochlorothiazide [From Aldoril] Allergy (Unknown, Verified 01/05/17 19:37) unknown ibuprofen [From Motrin] Allergy (Unknown, Verified 01/05/17 19:37) See Comments unknown ketorolac [From Toradol] Allergy (Unknown, Verified 01/05/17 19:37) See Comments unknown methyldopa Allergy (Unknown, Verified 01/05/17 19:37) unknown sulfamethoxazole [From Bactrim] Allergy (Verified 01/05/17 19:37) See Comments trimethoprim [From Bactrim] Allergy (Verified 01/05/17 19:37) See Comments vancomycin Adverse Reaction (Unknown, Verified 01/05/17 19:37) Red Man Syndrome - Respiratory Orders Smoking Cessation: Smoking cessation has been advised. For more information, call the [place] Tobacco Quit Line at 4-101-YLGY-NOW. - Lab Orders Lab Orders: Other (include drug levels w/frequency) (chem in 3 days) - Advance Directives Code Status: DNR-Arrest/Don't Intubate - Mobility Orders Chair - Rehabiliation Orders Rehab Potential: Fair Rehab Orders: Evaluation for Physical Therapy, Evaluation for Occupational Therapy - Diet Orders Mechanical Soft CERTIFICATION: I certify that the transfer of the above named patient to an Extended Care Facility is necessary for the continuing treatment of the diagnosis listed. The above information is true and accurate reflection of patient's current condition. Confidential - Redisclosure prohibited without a patient's written consent.
--- NOTE | 2017-01-08 12:01 | Nephrology Progress Note ---
Date of Encounter: 01/08/17 Time of Encounter: 11:59 - Assessment and Plan (1) Hyponatremia Current Visit: Yes Status: Acute Patient's sodium is improving at a good rate. Her urine and serum osmolality indicate that she is getting rid of free water appropriately. She is improving appropriately without the use of additional saline or Lasix. Okay for outpatient monitoring. She can be followed by her primary care provider and if the hyponatremia persist or gets worse she can be re-referred to [facility]. (2) Acute kidney injury superimposed on chronic kidney disease Current Visit: No Status: Acute Seems to be from volume depletion. Her renal function is back to normal. Okay for outpatient monitoring. (3) UTI (urinary tract infection) Current Visit: No Status: Acute Per primary care team. Qualifiers: Urinary tract infection type: acute cystitis Hematuria presence: without hematuria Qualified Code(s): N30.00 - Acute cystitis without hematuria (4) Cholangiocarcinoma Current Visit: No Status: Chronic Subjective Principal diagnosis: Hyponatremia Interval history: Patient was seen and evaluated and she is anticipating discharge today.she has no new complaint. Review of system otherwise appears to be stable. Objective - Vital Signs Vital signs: Vital Signs Temp Pulse Resp BP Pulse Ox 01/08/17 11:13 98.3 F 94 16 126/71 93 01/08/17 07:50 98.4 F 73 16 149/73 97 01/08/17 04:08 97.6 F 70 16 137/68 99 01/08/17 00:11 98.2 F 74 19 150/69 99 01/07/17 18:58 97.1 F L 80 17 117/65 97 01/07/17 15:44 97.9 F 74 17 127/75 99 Intake and Output 01/07/17 01/08/17 01/08/17 23:59 07:59 15:59 Intake Total 200 / 200 120 / 120 Output Total 600 / 600 1650 / 1650 Balance -600 / -600 -1450 / -1450 120 / 120 Intake: IV Fluids 200 / 200 Cipro Premix 400 MG/200 200 / 200 ML 400 mg In 200 ml @ 200 mls/hr IVPB Q12HR BÁRBARA Rx #:[id number] Oral 120 / 120 Output: Urine 900 / 900 Catheter 600 / 600 750 / 750 Other: Meal Breakfast Percent of Meal Consumed 100% Weight 57.924 kg Patient Weight 01/08/17 23:59 Weight 57.924 kg - General Appearance General appearance: Present: well-developed, chronically ill, frail EENT: Present: ATNC Respiratory: Present: clear Additional Comments: Respirations are unlabored Cardiology: Present: no edema, regular rate Integumentary: Present: warm and dry Neurologic: Present: alert and oriented x3 - Lab 01/08/17 03:19 01/08/17 11:29 Most recent lab results Calcium 8.7 mg/dL (8.6-10.8) 01/08/17 03:19 Magnesium 1.3 mg/dL (1.6-2.6) L 01/06/17 07:48 Urine Sodium 28.0 mEq/L 01/05/17 21:43 Consult Discharge Plan - Plan Referrals: NO,PCP [Primary Care Provider] - Prescriptions: Ciprofloxacin [Cipro] 500 mg PO BID 5 Days
== END 2017-01-08 13:14 | DRG 690 ==
LOC: 3BNU 16:32 → EMEROO 16:32 → 3BNU 19:57
PROVIDERS: ADMIT Internal Medicine; ATTEND Registered Nurse